=== PATIENT | female | born 1975 | race Caucasian/White ===

== ENCOUNTER 2016-04-26 19:48 | Inpatient (IN) | payer OTHER ==
[2016-04-26] MEDS ORDERED: NS 1,000 ML IV ONE (20:34)
[2016-04-26] MEDS ORDERED: ZOFRAN IV ONE (20:35)
[2016-04-26] MEDS ORDERED: MORPHINE IV ONE ×2 (20:35→23:53)
[2016-04-26 20:41] LABS: URINE CULTURE NEEDED? NO; URINE SOURCE CLEAN CATCH
[2016-04-26 20:43] LABS: BILIRUBIN URINE NEGATIVE (NEGATIVE); BLOOD URINE LARGE (NEGATIVE); COLOR YELLOW; GLUCOSE URINE NEGATIVE (NEGATIVE); LEUKOCYTES URINE NEGATIVE (NEGATIVE); NITRITE URINE NEGATIVE (NEGATIVE); PROTEIN URINE 30 mg/dL (NEGATIVE); SP GRAVITY URINE 1.022; TURBIDITY URINE HAZY (CLEAR); UROBILINOGEN URINE NORMAL (NORMAL)
[2016-04-26 20:56] LABS: UR EPITHELIAL CELLS <10 /HPF (<10); URINE BACTERIA 1+ /HPF; URINE MICRO REVIEW NEEDED? YES; URINE RBC <10 /HPF (<10); URINE WBC <10 /HPF (<10)
[2016-04-26 21:04] LABS: URINE CASTS NONE SEEN; URINE CRYSTALS NONE SEEN
[2016-04-26 21:05] LABS: URINE SMALL ROUND CELLS NONE SEEN
[2016-04-26 21:08] LABS: MANUAL DIFF NEEDED? NO
[2016-04-26 21:14] LABS: UR AMPHETAMINES QUAL NONE DETECTED (NONE DETECT); UR BARBITUATES QUAL NONE DETECTED (NONE DETECT); UR BENZODIAZEPIN QUAL PRESUMPTIVE POSITIVE (NONE DETECT); UR CANNABINOIDS QUAL NONE DETECTED (NONE DETECT); UR COCAINE QUAL NONE DETECTED (NONE DETECT); UR METHADONE QUAL NONE DETECTED (NONE DETECT); UR OPIATES QUAL PRESUMPTIVE POSITIVE (NONE DETECT); UR OXYCODONE QUAL NONE DETECTED (NONE DETECT); UR PCP QUAL NONE DETECTED (NONE DETECT)
[2016-04-26 21:17] LABS: BASO% 0.3 % (0.0-0.8); EOS# 0.02 X1000 (0.0-0.7); EOS% 0.2 % (0.0-10.0); HEMATOCRIT 29.6 % (37.0-47.0); HEMOGLOBIN 10.1 g/dL (12.0-16.0); IMM GRAN# 0.03 X1000 (0.0-0.04); IMM GRAN% 0.3 % (0.0-0.5); LYMPH# 2.06 X1000 (1.2-3.4); LYMPH% 18.8 % (20.5-51.1); MCH 31.4 PG (27-31); MCHC 34.1 g/dL (33-37); MCV 91.9 FL (81-99); MONO# 1.29 X1000 (0.11-0.59); MONO% 11.7 % (1.7-9.3); MPV 9.8 FL (7.4-10.4); NEUT% 68.7 % (42.2-75.2); PLT 387 X1000 (130-400); RBC 3.22 XMIL (4.2-5.4)
[2016-04-26 21:48] LABS: ALBUMIN 1.6 g/dL (3.5-5.0); TOTAL BILIRUBIN 0.6 mg/dL (0.20-1.00); TOTAL PROTEIN 4.7 g/dL (6.3-8.3)
[2016-04-26 21:50] LABS: CALCIUM 6.7 mg/dL (8.8-10.2); POTASSIUM 2.3 mmol/L (3.5-5.1)
[2016-04-26] MEDS ORDERED: CALTRATE 600 PO ONE (21:56)
[2016-04-26] MEDS ORDERED: NS + KCL 20 MEQ 1,000 ML IV SCH (22:00)
[2016-04-26] MEDS ORDERED: MAG-OX PO ONE (22:05)
[2016-04-26] MEDS: NS + KCL 20 MEQ 1,000 ML IV SCH (22:29)
--- NOTE | 2016-04-26 22:29 | PROVIDER DOCUMENTATION ---
Addendum entered and electronically signed by Evelyn Moctezuma Scribe 04/26/16 23: 13: EKG Interpretation - EKG Time of EKG reading by physician:: 20:08 EKG Read and Signed by:: Scooter Cortes EKG Interpretation (*Must complete 3 of following elements*): Abnormal Rate: 102 Rhythm: sinus tachycardia w/ premature supraventricula complexs ST Wave: non-specific ST changes Original Note: HPI-Abdominal Pain/GI Problem - General Chief Complaint: N/V/D Stated Complaint: N/V/D, COUGH, FEVER Time Seen by Provider: 04/26/16 20:07 Source: patient Allergies/Adverse Reactions: Patient Allergies Allergy/AdvReac Type Severity Reaction Status Date / Time Penicillins Allergy SWELLING Verified 05/05/14 20:55 Home Medications: Home Medication List Medication Instructions Recorded Confirmed Last Taken Type Escitalopram Oxalate [Lexapro] 5 mg PO DAILY 12/18/15 12/18/15 Unknown History Esomeprazole Magnesium [Nexium 20 mg PO BID 12/18/15 12/18/15 Unknown History 24Hr] Furosemide [Lasix] 20 mg PO DAILY 12/18/15 12/18/15 Unknown History Promethazine [Phenergan] 25 mg PO Q6H PRN PRN 12/18/15 12/18/15 12/17/15 History Simethicone [Gas-X] 80 mg PO TID 12/18/15 12/18/15 Unknown History Buprenorphine/Naloxone S.l. 1 each SL BID #60 strip 12/21/15 Unknown Rx [Suboxone 8 mg/2 mg] Chlordiazepoxide [Librium] 25 mg PO BID #15 capsule 12/21/15 Unknown Rx Sulfamethoxazole/Tmp D.s. [Septra 1 each PO BID #14 tablet 12/21/15 Unknown Rx Ds] Zolpidem Tartrate [Ambien] 10 mg PO HS #0 12/21/15 12/18/15 Unknown Rx - History of Present Illness-ABD Nature of Presenting Problems: This pt presents today c complaints of abdominal pain and n/v/d X 5 days. She reports that she has been unable to hold anything down for the past 3 days and is having decreased urination. No fever,chills. Pt is hysterical and anxious in the room and states that she is out of her suboxone and xanax although later in the conversation she told me that she took half of one this morning. No other issues or complaints. Abdominal Pain Onset Location: reports: generalized abdomen Quality of Pain: reports: cramping Severity in ED: reports: moderate Onset/Duration: reports: 5 days ago Timing: reports: still present Modifying Factors: improves with: vomiting Associated Symptoms: reports: diarrhea, fatigue, loss of appetite, nausea, vomiting Last BM: this afternoon Dark Stools Present?: reports: none noticed Rectal Bleeding: reports: none Rectal Pain: reports: none Emesis Description: reports: clear Bruising or Bleeding Gums?: No Similar Symptoms Previously?: No Recently seen or treated by another doctor?: No Review of Systems - Adult - REVIEW OF SYSTEMS - ADULT Constitutional: reports: fatique. denies: chills, fever Eyes: reports: no symptoms reported. denies: discharge, dry eyes Ears, Nose, Mouth & Throat: reports: no symptoms reported. denies: ear discharge, ear pain Cardiovascular: reports: no symptoms reported. denies: chest pain, edema Respiratory: reports: no symptoms reported. denies: chronic cough, cough Gastrointestinal: reports: abdominal pain, diarrhea, nausea, poor appetite, vomiting. denies: hematemesis, difficulty swallowing, frequent heartburn Genitourinary: reports: see HPI. denies: dysuria, discharge Musculoskeletal: reports: no symptoms reported. denies: bone pain, back pain Integumentary: reports: no symptoms reported. denies: hives, hair loss Neurological: reports: no symptoms reported. denies: ataxia, dizziness/vertigo Psychiatric: reports: anxiety. denies: insomnia, panic attacks Endocrine: reports: no symptoms reported Hematologic/Lymphatic: reports: no symptoms reported Allergic/Immunologic: reports: no symptoms reported All Other Systems: Reviewed and Negative Past History - Adult - PAST MEDICAL HISTORY-ADULT Review of Records: reports: Old Records Reviewed, Nursing Assessment Review, Medications Reviewed, Social history reviewed & non-contributory. Major Childhood Illnesses: reports: denies history Cardiovascular: reports: denies history Respiratory: reports: denies history Gastrointestinal: reports: inflammatory bowel disease, IBS, obstruction Obstetrical/Gynecological: reports: endometriosis, fibroids, uterine/ovarian cancer Genitourinary: reports: cancer Musculoskeletal: reports: denies history Neurological: reports: denies history Psychiatric: reports: denies history Endocrine/Immune: reports: denies history Other Conditions: reports: denies history - PRIOR SURGERIES/PROCEDURES Surgical/Procedure History: reports: hysterectomy, bowel surgery - PRIOR HOSPITALIZATIONS Prior Hospitalizations: reports: for similar symptoms - IMMUNIZATION STATUS Childhood Immunizations: NUTD, See Nurse Assessment Flu Vaccine: See Nurse Assessment - FAMILY HISTORY Family History: reviewed, not pertinent Physical Exam-General - PHYSICAL EXAM-ADULT Initial Vital Signs Reviewed: Yes - CONSTITUTIONAL General Appearance: appears well, alert, no apparent distress - EYES Eyes: PERRL/EOMI, pink conjunctivae - HEAD, EARS, NOSE, MOUTH & THROAT HENMT: normocephalic/atraumatic, moist mucous membranes, normal ENT inspection - NECK Neck: non-tender, full range of motion - RESPIRATORY Respiratory: chest non-tender, lungs clear, normal breath sounds - CARDIOVASCULAR Cardiovascular: normal peripheral pulses, tachycardia - GASTROINTESTINAL (ABDOMEN) Abdominal Exam: normal bowel sounds, non tender, soft - MUSCULOSKELETAL Back Exam: normal inspection Extremity: normal range of motion, non-tender - SKIN Integumentary: normal color, normal turgor, warm/dry - NEUROLOGIC Neurologic: grossly normal, no motor/sensory deficits Progress - PLAN OF CARE/RESULTS Progress/Plan/Lab Results: Laboratory Tests 04/26/16 04/26/16 04/26/16 20:17 20:40 21:02 WBC RBC Hgb Hct MCV MCH MCHC RDW Std Deviation Plt Count MPV Immature Gran % (Auto) Neut % (Auto) Lymph % (Auto) Bertie % (Auto) Eos % (Auto) Baso % (Auto) Immature Gran # (Auto) Neut # (Auto) Lymph # (Auto) Bertie # (Auto) Eos # (Auto) Baso # (Auto) Sodium Potassium Chloride Carbon Dioxide Anion Gap BUN Creatinine Estimated GFR/1.73 m2 BUN/Creatinine Ratio Glucose Calculated Osmolality Calcium Magnesium Total Bilirubin AST ALT Alkaline Phosphatase Creatine Kinase 66 Troponin T Total Protein Albumin Globulin Albumin/Globulin Ratio Urine Source CLEAN CATCH Urine Color YELLOW Urine Turbidity HAZY Urine pH 6.0 Ur Specific [place] 1.022 Urine Protein 30 A Ur Glucose (Stick) NEGATIVE Ur Ketones (Stick) NEGATIVE Urine Blood LARGE A Urine Nitrite NEGATIVE Urine Bilirubin NEGATIVE Urobilinogen Dipstick NORMAL Urine Leukocytes NEGATIVE Urine WBC (Auto) <10 Urine RBC (Auto) <10 U Epithel Cells (Auto) <10 Urine Bacteria (Auto) 1+ Urine Crystals NONE SEEN Small Round Cells NONE SEEN Urine Casts NONE SEEN Urine Yeast-like Cells NONE SEEN Urine Opiates Screen PRESUMPTIVE POSITIVE A Ur Oxycodone Screen NONE DETECTED Ur Methadone, Qual NONE DETECTED Ur Barbiturates Screen NONE DETECTED Ur Phencyclidine Scrn NONE DETECTED Ur Amphetamines Screen NONE DETECTED U Benzodiazepines Scrn PRESUMPTIVE POSITIVE A Urine Cocaine Screen NONE DETECTED U Cannabinoids Screen NONE DETECTED Plasma/Serum Ethyl Alc 04/26/16 04/26/16 04/26/16 21:02 21:02 21:02 WBC 10.98 H RBC 3.22 L Hgb 10.1 L Hct 29.6 L MCV 91.9 MCH 31.4 H MCHC 34.1 RDW Std Deviation 15.5 H Plt Count 387 MPV 9.8 Immature Gran % (Auto) 0.3 Neut % (Auto) 68.7 Lymph % (Auto) 18.8 L Bertie % (Auto) 11.7 H Eos % (Auto) 0.2 Baso % (Auto) 0.3 Immature Gran # (Auto) 0.03 Neut # (Auto) 7.55 H Lymph # (Auto) 2.06 Bertie # (Auto) 1.29 H Eos # (Auto) 0.02 Baso # (Auto) 0.03 Sodium 139 Potassium 2.3 L* Chloride 99 Carbon Dioxide 18 L Anion Gap 22 BUN 4 L Creatinine 1.6 H Estimated GFR/1.73 m2 36 BUN/Creatinine Ratio 3 Glucose 169 H Calculated Osmolality 278 Calcium 6.7 L* Magnesium Total Bilirubin 0.60 AST 115 H ALT 103 H Alkaline Phosphatase 234 H Creatine Kinase Troponin T < 0.010 Total Protein 4.7 L Albumin 1.6 L Globulin 3.1 Albumin/Globulin Ratio 0.5 Urine Source Urine Color Urine Turbidity Urine pH Ur Specific [place] Urine Protein Ur Glucose (Stick) Ur Ketones (Stick) Urine Blood Urine Nitrite Urine Bilirubin Urobilinogen Dipstick Urine Leukocytes Urine WBC (Auto) Urine RBC (Auto) U Epithel Cells (Auto) Urine Bacteria (Auto) Urine Crystals Small Round Cells Urine Casts Urine Yeast-like Cells Urine Opiates Screen Ur Oxycodone Screen Ur Methadone, Qual Ur Barbiturates Screen Ur Phencyclidine Scrn Ur Amphetamines Screen U Benzodiazepines Scrn Urine Cocaine Screen U Cannabinoids Screen Plasma/Serum Ethyl Alc 04/26/16 04/26/16 21:02 21:02 WBC RBC Hgb Hct MCV MCH MCHC RDW Std Deviation Plt Count MPV Immature Gran % (Auto) Neut % (Auto) Lymph % (Auto) Bertie % (Auto) Eos % (Auto) Baso % (Auto) Immature Gran # (Auto) Neut # (Auto) Lymph # (Auto) Bertie # (Auto) Eos # (Auto) Baso # (Auto) Sodium Potassium Chloride Carbon Dioxide Anion Gap BUN Creatinine Estimated GFR/1.73 m2 BUN/Creatinine Ratio Glucose Calculated Osmolality Calcium Magnesium 1.3 L Total Bilirubin AST ALT Alkaline Phosphatase Creatine Kinase Troponin T Total Protein Albumin Globulin Albumin/Globulin Ratio Urine Source Urine Color Urine Turbidity Urine pH Ur Specific [place] Urine Protein Ur Glucose (Stick) Ur Ketones (Stick) Urine Blood Urine Nitrite Urine Bilirubin Urobilinogen Dipstick Urine Leukocytes Urine WBC (Auto) Urine RBC (Auto) U Epithel Cells (Auto) Urine Bacteria (Auto) Urine Crystals Small Round Cells Urine Casts Urine Yeast-like Cells Urine Opiates Screen Ur Oxycodone Screen Ur Methadone, Qual Ur Barbiturates Screen Ur Phencyclidine Scrn Ur Amphetamines Screen U Benzodiazepines Scrn Urine Cocaine Screen U Cannabinoids Screen Plasma/Serum Ethyl Alc Orders Category Date Time Status ED: Urine Bedside ORDERED Care 04/26/16 20:08 Inactive Saline Loc NOW Care 04/26/16 20:07 Active FLAT/UPRIGHT ABD/1 VIEW CHEST [RAD] Stat Exams 04/26/16 20:35 Taken ALCOHOL BLOOD Stat Lab 04/26/16 21:02 Completed CBC WITH ELECTRONIC DIFF [HEME] Stat Lab 04/26/16 21:02 Completed CK PROFILE [SP CHEM] Stat Lab 04/26/16 21:02 Completed COMPREHENSIVE METABOLIC PANEL [CHEM] Stat Lab 04/26/16 21:02 Completed MAGNESIUM [CHEM] Stat Lab 04/26/16 21:02 Completed OCCULT BLOOD SCREENING [STOOL] Stat Lab 04/26/16 21:50 Completed TROPONIN T Stat Lab 04/26/16 21:02 Completed URINALYSIS W/POSS RFLX CULT [URINALYSIS] Stat Lab 04/26/16 20:17 Completed URINE DRUG SCREEN Stat Lab 04/26/16 20:40 Completed URINE MANUAL MICROSCOPIC [URINALYSIS] Stat Lab 04/26/16 20:17 Completed 0.9% Sodium Chloride Inj [Ns] 1,000 ml Med 04/26/16 20:34 Discontinued IV 999 mls/hr Calcium Carbonate [Caltrate 600] Med 04/26/16 21:56 Discontinued 600 mg PO NOW ONE Magnesium Oxide [Mag-Ox] Med 04/26/16 22:05 Discontinued 400 mg PO NOW ONE Morphine Med 04/26/16 20:35 Discontinued 4 mg IV NOW ONE Ns + KCl 20 Meq 1,000 ml Med 04/26/16 22:00 Active IV 500 mls/hr Ns + KCl 20 Meq 1,000 ml Med 04/26/16 22:00 Discontinued IV 500 mls/hr Ondansetron [Zofran] Med 04/26/16 20:35 Discontinued 4 mg IV NOW ONE EKG [EKG] Stat Ther 04/26/16 20:02 Ordered Vital Signs Temp Pulse Resp BP Pulse Ox 04/26/16 21:43 98 H 14 121/82 98 04/26/16 20:01 98.4 F 109 H 18 104/61 100 Penicillins Allergy (Verified 05/05/14 20:55) SWELLING Escitalopram Oxalate [Lexapro] 5 mg PO DAILY 12/18/15 Esomeprazole Magnesium [Nexium 24Hr] 20 mg PO BID 12/18/15 Furosemide [Lasix] 20 mg PO DAILY 12/18/15 Promethazine [Phenergan] 25 mg PO Q6H PRN PRN 12/18/15 Simethicone [Gas-X] 80 mg PO TID 12/18/15 Buprenorphine/Naloxone S.l. [Suboxone 8 mg/2 mg] 1 each SL BID #60 strip Chlordiazepoxide [Librium] 25 mg PO BID #15 capsule 12/21/15 Sulfamethoxazole/Tmp D.s. [Septra Ds] 1 each PO BID #14 tablet 12/21/15 Zolpidem Tartrate [Ambien] 10 mg PO HS #0 12/21/15 I&O 04/25/16 04/26/16 04/27/16 06:59 06:59 06:59 Output Total 20 Balance -20 Laboratory 04/26/16 04/26/16 04/26/16 21:02 21:02 21:02 WBC RBC Hgb Hct MCV MCH MCHC RDW Std Deviation Plt Count MPV Immature Gran % (Auto) Neut % (Auto) Lymph % (Auto) Bertie % (Auto) Eos % (Auto) Baso % (Auto) Immature Gran # (Auto) Neut # (Auto) Lymph # (Auto) Bertie # (Auto) Eos # (Auto) Baso # (Auto) Sodium 139 Potassium 2.3 L* Chloride 99 Carbon Dioxide 18 L Anion Gap 22 BUN 4 L Creatinine 1.6 H Estimated GFR/1.73 m2 36 BUN/Creatinine Ratio 3 Glucose 169 H Calculated Osmolality 278 Calcium 6.7 L* Magnesium 1.3 L Total Bilirubin 0.60 AST 115 H ALT 103 H Alkaline Phosphatase 234 H Creatine Kinase Troponin T Total Protein 4.7 L Albumin 1.6 L Globulin 3.1 Albumin/Globulin Ratio 0.5 Urine Source Urine Color Urine Turbidity Urine pH Ur Specific [place] Urine Protein Ur Glucose (Stick) Ur Ketones (Stick) Urine Blood Urine Nitrite Urine Bilirubin Urobilinogen Dipstick Urine Leukocytes Urine WBC (Auto) Urine RBC (Auto) U Epithel Cells (Auto) Urine Bacteria (Auto) Urine Crystals Small Round Cells Urine Casts Urine Yeast-like Cells Urine Opiates Screen Ur Oxycodone Screen Ur Methadone, Qual Ur Barbiturates Screen Ur Phencyclidine Scrn Ur Amphetamines Screen U Benzodiazepines Scrn Urine Cocaine Screen U Cannabinoids Screen Plasma/Serum Ethyl Alc 04/26/16 04/26/16 04/26/16 21:02 21:02 21:02 WBC 10.98 H RBC 3.22 L Hgb 10.1 L Hct 29.6 L MCV 91.9 MCH 31.4 H MCHC 34.1 RDW Std Deviation 15.5 H Plt Count 387 MPV 9.8 Immature Gran % (Auto) 0.3 Neut % (Auto) 68.7 Lymph % (Auto) 18.8 L Bertie % (Auto) 11.7 H Eos % (Auto) 0.2 Baso % (Auto) 0.3 Immature Gran # (Auto) 0.03 Neut # (Auto) 7.55 H Lymph # (Auto) 2.06 Bertie # (Auto) 1.29 H Eos # (Auto) 0.02 Baso # (Auto) 0.03 Sodium Potassium Chloride Carbon Dioxide Anion Gap BUN Creatinine Estimated GFR/1.73 m2 BUN/Creatinine Ratio Glucose Calculated Osmolality Calcium Magnesium Total Bilirubin AST ALT Alkaline Phosphatase Creatine Kinase 66 Troponin T < 0.010 Total Protein Albumin Globulin Albumin/Globulin Ratio Urine Source Urine Color Urine Turbidity Urine pH Ur Specific [place] Urine Protein Ur Glucose (Stick) Ur Ketones (Stick) Urine Blood Urine Nitrite Urine Bilirubin Urobilinogen Dipstick Urine Leukocytes Urine WBC (Auto) Urine RBC (Auto) U Epithel Cells (Auto) Urine Bacteria (Auto) Urine Crystals Small Round Cells Urine Casts Urine Yeast-like Cells Urine Opiates Screen Ur Oxycodone Screen Ur Methadone, Qual Ur Barbiturates Screen Ur Phencyclidine Scrn Ur Amphetamines Screen U Benzodiazepines Scrn Urine Cocaine Screen U Cannabinoids Screen Plasma/Serum Ethyl Alc 04/26/16 04/26/16 20:40 20:17 WBC RBC Hgb Hct MCV MCH MCHC RDW Std Deviation Plt Count MPV Immature Gran % (Auto) Neut % (Auto) Lymph % (Auto) Bertie % (Auto) Eos % (Auto) Baso % (Auto) Immature Gran # (Auto) Neut # (Auto) Lymph # (Auto) Bertie # (Auto) Eos # (Auto) Baso # (Auto) Sodium Potassium Chloride Carbon Dioxide Anion Gap BUN Creatinine Estimated GFR/1.73 m2 BUN/Creatinine Ratio Glucose Calculated Osmolality Calcium Magnesium Total Bilirubin AST ALT Alkaline Phosphatase Creatine Kinase Troponin T Total Protein Albumin Globulin Albumin/Globulin Ratio Urine Source CLEAN CATCH Urine Color YELLOW Urine Turbidity HAZY Urine pH 6.0 Ur Specific [place] 1.022 Urine Protein 30 A Ur Glucose (Stick) NEGATIVE Ur Ketones (Stick) NEGATIVE Urine Blood LARGE A Urine Nitrite NEGATIVE Urine Bilirubin NEGATIVE Urobilinogen Dipstick NORMAL Urine Leukocytes NEGATIVE Urine WBC (Auto) <10 Urine RBC (Auto) <10 U Epithel Cells (Auto) <10 Urine Bacteria (Auto) 1+ Urine Crystals NONE SEEN Small Round Cells NONE SEEN Urine Casts NONE SEEN Urine Yeast-like Cells NONE SEEN Urine Opiates Screen PRESUMPTIVE POSITIVE A Ur Oxycodone Screen NONE DETECTED Ur Methadone, Qual NONE DETECTED Ur Barbiturates Screen NONE DETECTED Ur Phencyclidine Scrn NONE DETECTED Ur Amphetamines Screen NONE DETECTED U Benzodiazepines Scrn PRESUMPTIVE POSITIVE A Urine Cocaine Screen NONE DETECTED U Cannabinoids Screen NONE DETECTED Plasma/Serum Ethyl Alc - XRAY 1 XRAY Study: Chest, Abdomen XRAY Interpretation: nad - CONSULTS/PCP/HOSPITALIST Notification #1 *Consult/PCP/Hospitalist*: Dr. Dallas Time Discussed: 22:41 Consult Disposition: Admit Departure - Departure Time of Disposition Order: 22:37 DIAGNOSIS: Hypokalemia, Hypocalcemia, Dehydration Intractable nausea and vomiting Qualifiers: Vomiting type: unspecified Qualified Code(s): R11.2 - Nausea with vomiting, unspecified Disposition: ADMITTED INPATIENT 09 Certified Medical Emergency: Emergent Condition: Stable Attestation - Physician/ MEAGHAN Attestation Patient care was provided by Advanced Practice Provider:: Yes Advanced Practice Provider:: Forrest Chandler Advanced Practice Provider documentation review:: The Mid-level provider documentation, treatment plan and medical decision making was reviewed by the physician who agrees with all treatment and medical decision making by the MLP.
[2016-04-26] MEDS ORDERED: XANAX PO ONE ×2 (23:45→23:53)
[2016-04-26] MEDS ORDERED: XANAX ONE (23:56)
[2016-04-27] MEDS: NS + KCL 20 MEQ 1,000 ML IV SCH
[2016-04-27] MEDS ORDERED: NICODERM PATCH TD ONE (00:41)
[2016-04-27] MEDS: MAGNESIUM SULFATE 2 GM/S.W.I. 50 ML IV ONE ×2 (00:55→01:04)
--- NOTE | 2016-04-27 00:55 | Diag Imaging Result Document ---
PROCEDURE NAME: FLAT/UPRIGHT ABD/1 VIEW CHEST - 04/26/2016 PLAIN RADIOGRAPH OF THE CHEST AND ABDOMEN 3 VIEWS: COMPARISON: None available. FINDINGS: There are multiple metallic clips projecting over the lower abdomen and pelvis. Cholecystectomy clips are noted in the right upper quadrant. There are splenic calcified granulomata noted. There are unremarkable bowel gas and stool patterns. There is no obstructive pattern. There is no evidence of large-volume free abdominal gas. Vague opacities at the lower lung zones appear to be due to overlying soft tissue attenuation. The lungs are grossly clear. There is no definite pleural fluid collection. Cardiac silhouette is unremarkable. IMPRESSION: No definite acute pathology by plain radiograph.
--- NOTE | 2016-04-27 00:58 | HISTORY AND PHYSICAL ---
PRIMARY CARE PHYSICIAN: Dr. Medina. CHIEF COMPLAINT: Nausea, vomiting, diarrhea and weakness for 3 days. HISTORY OF PRESENTING ILLNESS: A 41-year-old female with a history of hypertension and panic disorder had presented to the emergency department with 3 days history of having nausea, vomiting, diarrhea. Patient states that she was so weak she was unable to get out of her couch. Finally she was brought by family members to the emergency department. She was evaluated, in the ER she was found to have multiple electrolyte abnormalities include low potassium, low magnesium, low calcium. Due to presenting symptoms it was thought that she would need hospitalization for further management. Time my examination she denied any headaches, vision changes, fevers, chills, chest pain, shortness of breath, hemoptysis, melena, complained of weakness, not feeling well. PAST MEDICAL HISTORY: Includes panic disorder, hypertension not taking any medicines. PAST SURGICAL HISTORY: Hysterectomy, colon surgery, cholecystectomy. ALLERGIES: Penicillin. CURRENT MEDICATION: As listed MAR. SOCIAL HISTORY: Twenty-five pack years history of smoking. Denies any history alcohol or illicit drug use. FAMILY HISTORY: Positive for coronary disease mother. REVIEW OF SYSTEMS: Twelve point review of systems listed as HPI. Other systems negative. PHYSICAL EXAMINATION: GENERAL: Cooperative, friendly female, she is resting comfortably now. VITAL SIGNS: Temperature 98.4 degrees, pulse 109, respiration 18, blood pressure 104/6, saturating 100%. HEENT: Atraumatic, normocephalic. Extraocular movements intact. PERRLA. NECK: Supple. CHEST: Clear to auscultation. CARDIOVASCULAR: Regular rate and rhythm. ABDOMEN: Soft, nontender. Positive bowel sounds. EXTREMITIES: No edema. NEURO: She is awake, alert, oriented x3. : No bladder distention. SKIN: Warm. LABORATORIES AND STUDIES: WBC 10.98, hemoglobin 10.1, hematocrit 29.6, platelets 387,000. UA shows +1 bacteria. Sodium 139, potassium 2.3, chloride 99, CO2 18, BUN is 4, creatinine is 1.6, glucose is 169, calcium is 6.7, AST, ALT is 115, 103, alkaline phosphatase is 234, magnesium is 103. ASSESSMENT: A 41-year-old female with a history of hypertension and anxiety disorder had presented to emergency department with 3 days history worsening nausea, vomiting, diarrhea. She was found to have multiple electrolyte abnormalities on laboratory. She will need hospitalization further management. 1. Nausea, vomiting, diarrhea suspected gastroenteritis. 2. Hypokalemia. 3. Hypomagnesemia. 4. Hypocalcemia. 5. Abnormal liver function tests. 6. Suspected urinary tract infection. PLAN: 1. We will admit patient to medical floor. 2. Continue support treatment with IV fluids, antiemetics. 3. Replace her electrolytes including potassium, magnesium. 4. Replace calcium. 5. Will check a hepatitis profile, right upper quadrant ultrasound. 6. Will check urine cultures and start patient on empiric antibiotics. 7. Will continue to follow and reassess.
[2016-04-27] MEDS ORDERED: POTASSIUM CHLORIDE 20 MEQ/SWI 100 ML IV SCH (01:00)
[2016-04-27] MEDS ORDERED: CALCIUM GLUCONATE 1 GM in NS 50 ML IV ONE (01:57)
[2016-04-27] MEDS ORDERED: ZOFRAN IV PRN (02:30)
[2016-04-27] MEDS: MORPHINE IV PRN ×3 (03:08→21:14)
[2016-04-27] MEDS: ZOFRAN IV PRN ×4 (03:08→19:55)
[2016-04-27] MEDS: POTASSIUM CHLORIDE 20 MEQ/SWI 100 ML IV SCH ×2 (04:26→06:06)
[2016-04-27] MEDS: NS 1,000 ML IV SCH ×4 (06:05→19:55)
--- NOTE | 2016-04-27 09:44 | Diag Imaging Result Document ---
PROCEDURE NAME: US ABDOMEN-COMPLETE - 04/27/2016 COMPLETE ABDOMINAL ULTRASOUND: COMPARISON: None available. FINDINGS: There has been a previous cholecystectomy. The common bile duct is dilated measuring up to 1.1 cm. At least in part, this is due to postcholecystectomy status. No discrete ductal stone can be identified sonographically. The liver, visualized pancreas, spleen, aorta, IVC, and kidneys are grossly unremarkable. IMPRESSION: Dilated common bile duct that is, at least in part, due to post cholecystectomy status. If clinically warranted, consider correlation with liver function tests.
[2016-04-27 09:56] LABS: ACETAMINOPHEN 3.7 ug/mL (10-30); PREALBUMIN 6.7 mg/dL (20-40)
[2016-04-27 10:02] LABS: TOTAL IRON 62 ug/dL (49-151)
[2016-04-27] MEDS: LEVAQUIN 250 MG/D5W 50 ML IV SCH (10:24)
[2016-04-27] MEDS: TYLENOL PO PRN (10:27)
[2016-04-27 10:40] LABS: VITAMIN D 25 HYDROXY 6.7 NG/DL
[2016-04-27 11:43] LABS: UNBOUND IRON < 17 ug/dL (112-346)
[2016-04-27] MEDS: ATIVAN IV PRN ×2 (12:39→19:55)
[2016-04-27] MEDS: CLINIMIX E 4.25%-5% SOLUTION 1,000 ML IV SCH (12:40)
--- NOTE | 2016-04-27 13:57 | PROGRESS NOTE ---
DATE: 04/27/2016 SUBJECTIVE: Today, Ms. Bolaños referred to be doing relatively fine. She continues to have abdominal discomfort but has not vomited. Ms. Bolaños was admitted last night. OBJECTIVE: Vital signs are stable. Blood pressure is 129/87, pulse of 96, respirations 20, temperature is 97.2 degrees. General: Ms. Bolaños is a 41-year-old female. She is in bed in no remarkable distress. She looks very malnourished with BMI of 15.3. Mucosa is pink and moist. Anicteric. Acyanotic. Neck is supple. Chest: Air entry is bilaterally reduced. There is diffuse end exploratory wheezes. Cardiovascular: Regular rate and rhythm. Abdomen is soft, mildly tender all over. There is a very bad old surgical scar on the anterior abdominal wall midline, and there is some drainage to the distal part of this scar almost which the pubics. Extremities: No pedal edema. FILENET ADMIN: The patient is drowsy but is easily arousable, and she just gets demanding for her sedatives. LABORATORY: Results have been reviewed. Very remarkably, potassium is 2.3, calcium is 6.7, magnesium is 1.3. Vitamin D is 6.7. Folate is 8.4 and prealbumin is 6.7. ASSESSMENT: Ms Bolaños is a 41-year-old female, who presented to the emergency department because of nausea and vomiting. 1. Intractable nausea, vomiting, and diarrhea. I think this is probably is a gastroenteritis; however, with the extensive abdominal surgical history the patient, we will be keeping a very close eye on her abdominal exams. 2. Multivitamin and multi-mineral deficiencies. I am not quite sure if this is just a problem of inadequate ingestion or there is a genuine underlying malabsorptive syndrome. 3. Vitamin D and folate deficiencies. We will replace this. 4. Multiple GI surgeries in [facility]. We will request for the documents. 5. Prescription drug use. The patient is very adamant and has been requesting a lot of pain medications and sedatives. From her history, she seems to have been in contact with the healthcare system for long, and she seems to have been using a lot of these sedatives and opioids. I will be extremely careful with the use of this in this patient so that we do not perpetuate the habit. 6. High anion gap metabolic acidosis, unclear etiology. We will do a lactic acid level and do the other workup for this. I assume this could be probably a D lactic acidosis from the gastrointestinal system. 7. Bronchospasms. The patient has wheezes. She had a history of [id number] history. I think she probably has an underlying chronic obstructive pulmonary disease; however , we will do a CT scan of the chest to make sure we are not missing any other pathology. 8. Chronic pain syndrome. 9. Transaminitis, etiology is unclear. We will involve our gastrointestinal colleague. So far, abdominal ultrasound is unrevealing except for mildly dilated common bile duct. 10. History of cholecystectomy. MTDD
[2016-04-27] MEDS: LIPOSYN 20% 250 ML IV SCH (15:26)
[2016-04-27] MEDS: NICODERM PATCH TD SCH (17:55)
[2016-04-28] MEDS: CLINIMIX E 4.25%-5% SOLUTION 1,000 ML IV SCH ×3 (01:47→23:31)
[2016-04-28] MEDS: ATIVAN IV PRN ×2 (01:47→08:09)
[2016-04-28] MEDS: ZOFRAN IV PRN ×4 (01:47→20:00)
[2016-04-28] MEDS: MORPHINE IV PRN ×2 (01:48→08:09)
[2016-04-28 06:04] LABS: MANUAL DIFF NEEDED? NO
[2016-04-28 06:09] LABS: BASO% 0.7 % (0.0-0.8); EOS# 0.06 X1000 (0.0-0.7); EOS% 1.3 % (0.0-10.0); HEMATOCRIT 25.2 % (37.0-47.0); HEMOGLOBIN 8.2 g/dL (12.0-16.0); LYMPH# 1.29 X1000 (1.2-3.4); MCH 30.8 PG (27-31); MCHC 32.5 g/dL (33-37); MCV 94.7 FL (81-99); MONO# 0.75 X1000 (0.11-0.59); MONO% 16.3 % (1.7-9.3); NEUT% 53.7 % (42.2-75.2); PLT 288 X1000 (130-400); RBC 2.66 XMIL (4.2-5.4)
[2016-04-28 06:30] LABS: AGAP 10; ALBUMIN 1.5 g/dL (3.5-5.0); ALKALINE PHOSPHATASE 191 U/L (32-104); BUN 4 mg/dL (8-22); CHLORIDE 109 mmol/L (98-107); COSMO 279; GOT 30 U/L (10-30); GPT 60 U/L (10-36); MAGNESIUM 1.9 mg/dL (1.5-2.7); POTASSIUM 2.9 mmol/L (3.5-5.1); SODIUM 141 mmol/L (136-145); TCO2 22 mmol/L (25-35); TOTAL BILIRUBIN 0.77 mg/dL (0.20-1.00); TOTAL PROTEIN 3.9 g/dL (6.3-8.3)
[2016-04-28 06:38] LABS: CALCIUM 6.7 mg/dL (8.8-10.2)
[2016-04-28] MEDS ORDERED: KLOR-CON PO ONE (07:28)
[2016-04-28] MEDS ORDERED: POTASSIUM CHLORIDE 60 MEQ in NS 500 ML IV ONE (07:48)
[2016-04-28] MEDS: LEVAQUIN 250 MG/D5W 50 ML IV SCH (08:10)
[2016-04-28] MEDS: NICODERM PATCH TD SCH (08:10)
[2016-04-28] MEDS: NEUTRA-PHOS PO SCH ×4 (08:10→23:32)
[2016-04-28] MEDS ORDERED: ZOMIG PO ONE (09:59)
--- NOTE | 2016-04-28 11:01 | EKG Report ---
Test Performed on : 04/26/2016 8:08:33 PM Test Reason : cp Blood Pressure : / mmHG Vent. Rate : 102 BPM Atrial Rate : 102 BPM P-R Int : 162 ms QRS Dur : 070 ms QT Int : 314 ms P-R-T Axes : 069 066 245 degrees QTc Int : 409 ms Sinus tachycardia. with premature supraventricular complexes. Septal infarct , age undetermined ST & T wave abnormality, consider inferolateral ischemia Abnormal ECG No previous ECGs available Unconfirmed Result
--- NOTE | 2016-04-28 11:19 | Diag Imaging Result Document ---
PROCEDURE NAME: THORAX/ABDOMEN/PELVIS W/O CONT - 04/27/2016 CT THORAX WITHOUT CONTRAST: TECHNIQUE: No contrast administered per request of the referring provider. A dose reduction protocol was used. No comparison exam. FINDINGS: There is mild interstitial marking prominence with fine nodularity throughout much of the lungs. There is scattered small patchy infiltrates at the left upper lobe. These findings may relate interstitial pneumonitis. There is no dense consolidation, pleural effusion, or pneumothorax identified. There are nonspecific small mediastinal lymph nodes. IMPRESSION: 1. Relatively diffuse bilateral interstitial opacities with fine nodularity. These may relate to interstitial pneumonitis. There is no dense consolidation seen. 2. Nonspecific small mediastinal lymph nodes. CT ABDOMEN AND PELVIS WITHOUT CONTRAST: TECHNIQUE: No contrast administered per request of the referring provider. A dose reduction protocol was used. Compared with 07/13/2015. FINDINGS: There is some limitation of detail due to the lack of administered contrast. There is hepatomegaly with fatty infiltration of the liver. There are calcified granulomas in the spleen from old granulomatous disease. The adrenal glands and pancreas are unremarkable. The gallbladder is surgically absent. There are small nonobstructing stones in the left kidney. There is no obstructing renal stone or hydronephrosis identified. There is some distention of portions of small bowel and colon. There is mild edema of the mesentery area. There is no abscess identified. There is no free air. There is no substantial free fluid identified. There has been previous hysterectomy. IMPRESSION: 1. Hepatomegaly with fatty infiltration of the liver. 2. Small nonobstructing stones in left kidney. No hydronephrosis. 3. Nonspecific mild to moderate distention of portions of small bowel and colon. Mild edema of mesentery. 4. No abscess. No free air. The on-call radiologist provided preliminary results at 8:05 p.m. on 04/27/2016.
[2016-04-28] MEDS: LIPOSYN 20% 250 ML IV SCH (14:36)
[2016-04-28] MEDS: SUBOXONE 8 MG/2 MG SL SCH ×2 (14:46→22:52)
[2016-04-28] MEDS: MERREM 1 GM in NS 50 ML IV SCH ×2 (16:05→22:52)
[2016-04-28] MEDS: ROBITUSSIN PO PRN (16:23)
[2016-04-28] MEDS: TESSALON PO SCH (17:52)
[2016-04-28] MEDS: DUONEB (A & A) INH SCH ×2 (19:28→23:30)
[2016-04-28] MEDS ORDERED: CALCIUM GLUCONATE 1 GM in NS 50 ML IV ONE (20:00)
[2016-04-28] MEDS: XANAX PO SCH (20:00)
--- NOTE | 2016-04-28 22:32 | PROGRESS NOTE ---
DATE: 04/28/2016 SUBJECTIVE: The patient complains of some nausea but has not vomited today. She is requesting her Ativan and Ambien be restarted. OBJECTIVE: Vital Signs: Temperature 97 degrees, blood pressure 130/62, heart rate 88, respirations 20, O2 saturation 95% on room air. General: This is a middle-aged female, lying in bed, in no acute distress. Head: Normocephalic, atraumatic. Heart: S1, S2 normal. Regular rate and rhythm. Lungs: Clear to auscultation bilaterally. No wheezes, no rales, no rhonchi. Abdomen: Positive bowel sounds. Soft, nontender, nondistended. Extremities: No edema. No cyanosis. No calf tenderness. Neurologic: The patient is alert and oriented x3. No focal neurologic deficits noted. LABS: White blood cell count 4.6, hemoglobin 8.2, hematocrit 25, platelets 288,000. Sodium 141, potassium 2.9, chloride 109, CO2 22, BUN 4, creatinine 1. Glucose 110, calcium 6.7, phosphorus 2.4, magnesium 1.9, albumin 1.5. ASSESSMENT AND PLAN: 1. Persistent nausea, vomiting and diarrhea. We will continue with IV fluid hydration as well as start the patient on IV Protonix. GI has been consulted. We await further recommendations. The patient continues to have multiple episodes of diarrhea. We will order stool studies. 2. Pneumonitis. We will start the patient on Merrem. 3. Vitamin D deficiency. We will start the patient on vitamin D replacement. 4. Folate deficiency. We will start the patient on folic acid. 5. History of opioid dependence. Continue on Suboxone. 6. Hypokalemia. We will replace the patient's potassium. 7. Hypophosphatemia. We will replace the patient's phosphorus. 8. Hypocalcemia. We will replace the patient's calcium. 9. Iron-deficiency anemia. We will start the patient on iron supplementation. 10. Anxiety disorder. Continue on Xanax.
[2016-04-28] MEDS: NS 1,000 ML IV SCH (22:52)
[2016-04-28] MEDS: VITAMIN D PO SCH (22:53)
[2016-04-28] MEDS: AMBIEN PO SCH (22:54)
[2016-04-28] MEDS: PROTONIX IV SCH (22:54)
[2016-04-29] MEDS: DUONEB (A & A) INH SCH ×6 (03:51→23:35)
[2016-04-29] MEDS: CLINIMIX E 4.25%-5% SOLUTION 1,000 ML IV SCH ×2 (04:41→16:56)
[2016-04-29] MEDS: ZOFRAN IV PRN ×4 (04:47→21:32)
[2016-04-29] MEDS ORDERED: FLUZONE QUAD 2016-2017 SYRINGE IM ONE (06:00)
[2016-04-29 06:08] LABS: BASO% 0.7 % (0.0-0.8); EOS# 0.06 X1000 (0.0-0.7); EOS% 1.1 % (0.0-10.0); HEMATOCRIT 27.8 % (37.0-47.0); HEMOGLOBIN 8.6 g/dL (12.0-16.0); IMM GRAN# 0.03 X1000 (0.0-0.04); IMM GRAN% 0.5 % (0.0-0.5); LYMPH# 1.66 X1000 (1.2-3.4); LYMPH% 29.4 % (20.5-51.1); MANUAL DIFF NEEDED? YES; MCH 30.7 PG (27-31); MCHC 30.9 g/dL (33-37); MCV 99.3 FL (81-99); MONO# 1.27 X1000 (0.11-0.59); MONO% 22.5 % (1.7-9.3); MPV 9.9 FL (7.4-10.4); NEUT% 45.8 % (42.2-75.2); PLT 274 X1000 (130-400)
[2016-04-29] MEDS ORDERED: BLISTEX MEDICATED BERRY LIP BALM TOP PRN (06:14)
[2016-04-29] MEDS ORDERED: VASELINE TOP PRN (06:15)
[2016-04-29 06:18] LABS: AGAP 9; ALBUMIN 1.6 g/dL (3.5-5.0); ALKALINE PHOSPHATASE 179 U/L (32-104); BUN 6 mg/dL (8-22); CHLORIDE 113 mmol/L (98-107); COSMO 278; GOT 20 U/L (10-30); GPT 46 U/L (10-36); MAGNESIUM 1.5 mg/dL (1.5-2.7); POTASSIUM 4.7 mmol/L (3.5-5.1); SODIUM 141 mmol/L (136-145); TCO2 19 mmol/L (25-35); TOTAL BILIRUBIN 0.64 mg/dL (0.20-1.00); TOTAL PROTEIN 4.4 g/dL (6.3-8.3)
[2016-04-29 06:21] LABS: CALCIUM 7.1 mg/dL (8.8-10.2)
[2016-04-29] MEDS: MERREM 1 GM in NS 50 ML IV SCH ×2 (07:00→16:58)
[2016-04-29] MEDS: PROTONIX IV SCH ×3 (07:00→19:49)
[2016-04-29] MEDS: LIPOSYN 20% 250 ML IV SCH (07:00)
[2016-04-29 07:07] LABS: BASO 12 % (0-1); LYMPHS 21 % (21-51); MONO 16 % (1-9)
[2016-04-29] MEDS: LEVAQUIN 250 MG/D5W 50 ML IV SCH (10:43)
[2016-04-29] MEDS: TESSALON PO SCH ×3 (10:43→22:54)
[2016-04-29] MEDS: SUBOXONE 8 MG/2 MG SL SCH ×2 (10:43→21:13)
[2016-04-29] MEDS: XANAX PO SCH ×2 (10:43→21:14)
[2016-04-29] MEDS: NICODERM PATCH TD SCH (10:43)
[2016-04-29] MEDS: FOLIC ACID PO SCH (10:43)
[2016-04-29] MEDS: NEUTRA-PHOS PO SCH (10:45)
[2016-04-29 10:58] LABS: HEPATITIS PROFILE ACUTE SEE COMMENTS (())
--- NOTE | 2016-04-29 10:59 | CONSULTATION ---
DATE OF CONSULTATION: 04/28/2016 HISTORY OF PRESENT ILLNESS: This is a 41-year-old female with complicated surgical history. This all began with apparently ovarian cancer that was resected she had recurrence complicated by a bowel injury that required multiple re-operations for perforation and peritonitis. She has had subsequent complications related to that including what appears to be a delayed abdominal closure. She has had exploratory laparotomies for bowel obstructions and now carries a diagnosis short bowel syndrome. Most recent operation was in January and this sounds like an exploratory laparotomy. All of her operations have coursed over the last couple years. All of these surgeries have been done in [place] and [place] by Dr. Chow and Dr. Cisneros in [place]. She presents now with long-standing nausea, vomiting, and diarrhea. Initial labs showed significant electrolyte derangements and she has been on TPN and has undergone a workup of this while here. I was called for concerns of some drainage from the inferior aspect of her wound. PAST MEDICAL HISTORY: 1. History of ovarian cancer. 2. History of opiate abuse, now on Suboxone. 3. Panic disorder. 4. Hypertension. 5. 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 PAST SURGICAL HISTORY: She has had a hysterectomy, oophorectomy, presumably a colon resection, multiple small bowel resections, multiple exploratory laparotomies, cholecystectomy. CURRENT MEDICATIONS: Includes a Suboxone. They have her on antibiotics and TPN while here. SOCIAL HISTORY: She is a current smoker. Denies significant alcohol or IV drug abuse. FAMILY HISTORY: Coronary disease. REVIEW OF SYSTEMS: Ten point negative except for what is mentioned in HPI. PHYSICAL EXAMINATION: Vital Signs: Temp 97.8 degrees, pulse 85, blood pressure 157/89, O2 saturation 99% on room air. General: She is a very tremulous, cachectic, and ill-appearing white female. She is quite somnolent. Dozes off during conversation. HEENT: No scleral icterus. Cardiovascular: Normal rate. Regular rhythm. Pulmonary: No increased work of breathing. Abdomen: Soft, nontender, nondistended. There is a large midline hernia with loss of domain. There is pretty much skin overlying bowel with some granulation tissue in the inferior aspect of wound. I do not see any obvious succus or purulence drainage from the wound. Integumentary: Otherwise warm and dry. She is very thin throughout. LABS: White count 4.6, hematocrit is 25, platelets are 288. Sodium is 141. Potassium 2.9; it was 2.3 yesterday. Bicarb 22; it was 18 yesterday. Creatinine is 1 from 1.6. Glucose 110. Calcium is low at 6.7. Magnesium was 1.3 yesterday; it is 1.9 today. Mild elevation transaminases and alkaline phosphatase. Bilirubin is normal. Albumin is 1.5. Her pre-albumin is 6.7. Urinalysis shows no signs of infection. UDS positive for opiates and benzodiazepines. CT of abdomen and pelvis shows: 1. Hepatomegaly with fatty infiltration liver. 2. Small obstructing stones in left kidney. 3. [id number] distention of portions of small bowel and colon. 4. Mild edema the mesentery. No abscess. No free air. ASSESSMENT: This is a 41-year-old female with a complicated surgical history resulting from multiple abdominal catastrophes, who now likely has short bowel syndrome given her multiple bowel resections with profound electrolyte derangements. I also suspect some form of withdrawal as she is quite tremulous and opiate withdrawal could be the source of her diarrhea, nausea, and vomiting. She sounds to have been fired by Dr. Cisneros in [place]. Unclear of the details of this. We do not have her operative reports. Her wound is noninfected. She has a hernia here and there is high likelihood of ultimately developing enterocutaneous fistula but I do not see any signs of this now. PLAN: She needs aggressive electrolyte replacement and nutritional support. She would be a high risk for refeeding syndrome given her profoundly malnourishment, cachectic state. Suspect short bowel syndrome based off her appearance and her surgical history. Would likely need TPN indefinitely but could try nutritional support with Ensure, full liquid diet to see how this progresses. Would recommend contacting Dr. Cisneros's office and arranging transfer back to [place] and/or a tertiary center given her complicated surgical history. At this point given she is profoundly malnourished with significant electrolyte derangements, there is not an operation especially an elective operation that would be indicated in her as she would most definitely have another grave outcome from this. Will continue to follow along but do not plan any surgical intervention. I have recommend a Vaseline gauze to cover the inferior aspect of her wound and dry gauze. I do not recommend debriding this as there is intestine directly underlying this wound. Apparently there were recommendations to debride this at some point. Again, I would adamantly recommend against any debridement of her wound. SHIELA
--- NOTE | 2016-04-29 11:39 | CONSULTATION ---
DATE OF CONSULTATION: 04/28/2016 REFERRING PHYSICIAN: Dr. Mayelin Horta M.D. PRIMARY CARE PHYSICIAN: Dr. Patricia Vargas M.D. PRIMARY SURGEON: Dr. Shahrzad Cisneros M.D. PRIMARY CUTTER TENDER SURGEON: Dr. Daljit Diego MD. INDICATION FOR CONSULTATION: 1. Nausea with vomiting. 2. Abdominal pain. HISTORY OF PRESENT ILLNESS: The patient is a severely malnourished white female who presents with multiple concerns. Her concerns include nausea with vomiting, abdominal pain, diarrhea, drainage from her midline incision, ongoing weight loss, dysphagia, [id number] derangements, vitamin deficiencies, elevated liver function tests, nutritional marasmus and severe protein calorie malnutrition. The patient states that she was diagnosed with ovarian cancer at age 23 years of age in [place], [place]. She underwent surgical resection of her ovaries by Dr. Dawson Whitaker M.D. in [place] at the local hospital. She did well for approximately 12 months. She reports that she developed an orange size recurrence and underwent a hysterectomy by Dr. Jono Chow at [facility]. Unfortunately, during her surgery, her small bowel was lacerated in multiple places and she describes multiple small bowel enterotomies. She notes that they quickly performed surgical repair of the tears to her small intestine however, she developed a gangrenous small bowel and colon requiring multiple surgical resections due to ischemic bowel. This resulted in short bowel syndrome. Her course was complicated by adhesions and bowel obstructions that required reoperation. In December 2015, she underwent reconstructive surgery by Dr. Cisneros at [facility]. Since her surgery in December, she has been struggling to heal the wounds. The lower portion of her incision has been draining and has never healed since surgery. She continues to have copious amounts of green bilious secretions draining from the lower portion of her incision on a daily basis. Because of her clinical decline, she was brought to the emergency room by family. They also note in the chart that she has struggled with opioid and benzodiazepine abuse. She participated in the [facility] drug treatment program in December 2015 and is currently on Suboxone. REVIEW OF SYSTEMS: Is remarkable for dysphagia. Please note that on evening rounds, I heard the patient coughing and choking in the room. I walked into her room and performed a Heimlich maneuver only to discover that this is the patient we are being asked to see. Although the patient is on clear liquid diet, she was eating waffle fries and other foods from the restaurant brought in by family. She reports abdominal pain post Heimlich manuver. She had active wheezing and stridor during the food impaction but was able to pass it successfully. Post Heimlich maneuver, her oxygen saturation was 99% on room air. PAST MEDICAL HISTORY: 1. Myocardial infarction August 2015. 2. Hypertension. 3. Asthma. 4. DVT of the right upper extremity in 2016. 5. Iron-deficiency anemia. 6. OCD. 7. Paranoid depression. 8. IBS. 9. Short bowel syndrome. 10. Ovarian cancer. 11. Polysubstance abuse with inpatient treatment for 4 months in 2005. PAST SURGICAL HISTORY: 1. Total abdominal hysterectomy. 2. Oophorectomy. 3. Colon resection, partial. 4. Small bowel resection, partial. 5. Adhesiolysis. 6. Cholecystectomy. SOCIAL HISTORY: The patient has smoked 1-2 packs per day for 25 years. There is no report of alcohol ingestion. Relative to drugs, she began smoking marijuana at age 16, begin using opioids at age 30 and benzodiazepines at age 30. In December 2015 she was a participant in the [facility] program. She is currently on Suboxone. MEDICATION ALLERGIES: Penicillin. HOME MEDICATIONS: 1. Suboxone. 2. Ambien. 3. Septra DS. 4. Gas-X. 5. Phenergan. 6. Lasix. 7. Nexium 24. 8. Lexapro. 9. Librium. FAMILY HISTORY: Noncontributory. On exam, she is an extremely emaciated white female in no acute distress after the Heimlich maneuver was performed. She is cachectic appearing. Her blood pressure is 157/ 89, pulse is 75 respirations 20, temperature of 97.8 degrees. Her oxygen saturation is 99%. Her BMI is 15.3.HEENT: Negative for jaundice. Her conjunctivae are pale. Oral mucosal membranes are dry. Neck: Is supple. Chest: Is remarkable for inspiratory and expiratory wheezes. The stridor that was present during the food impaction has resolved. Cardiovascular Examination: Reveals regular rate and rhythm with no gallops or rubs. Abdominal Exam: Reveals normoactive bowel sounds. The abdomen is soft, with tenderness around the incision. There is a open wound in the lower end of her central incision. Extremities: Bilaterally are remarkable for trace edema. OBJECTIVE DATA: Reveals a hemoglobin of 8.2 with hematocrit of 25.2, and white count of 4.60. She has 288,000 platelets. Sodium is 141, potassium 2.9, chloride 109, CO2 22, BUN 4, creatinine 1.0, with a glucose of 110. Calcium is 6.7, phosphorus 2.4, magnesium 1.9, total bilirubin 0.77, AST 30, ALT 60, alkaline phosphatase 192, total protein 3.9, and albumin 1.5. TSH is 0.99, folic acid 3.4, B12 was greater than 2000, vitamin D is 6.7, pre-albumin is 6.7, plasma lactate is 2.5. IMPRESSION: 1. Short-bowel syndrome. 2. Irritable bowel syndrome. 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 4. Dysphagia requiring Heimlich maneuver at the bedside. 5. Severe protein calorie malnutrition. RECOMMENDATION: 1. I recommend a surgical consult to evaluate the lower end of her abdominal incision as I am very concerned about the presence of an enterocutaneous fistula. 2. Continue current medications including Protonix. 3. I am concerned that she has so many nutritional deficiencies and additional needs. We may not be able to provide all of her needed services in [place]. For the present time, I would continue current management. I will discuss treatment options of her various concerns with Dr. Horta, her primary hospitalist to determine the best treatment plan. She may need transfer to [facility] or [place] for gut rehabilitation and assessment for enterocutaneous fistula. 4. I spoke with Dr. Daljit Diego who will see the patient within the next 12-24 hours. 5. Additional recommendations to follow based on her clinical course. [facility]
[2016-04-29] MEDS ORDERED: MAGNESIUM SULFATE 2 GM/S.W.I. 50 ML IV ONE (12:15)
[2016-04-29] MEDS ORDERED: SODIUM PHOSPHATE 30 MMOL in NS 250 ML IV ONE (14:00)
--- NOTE | 2016-04-29 15:59 | PROGRESS NOTE ---
DATE: 04/29/2016 SUBJECTIVE: The patient was sitting up eating a clear liquid diet this morning for breakfast. She does complain of occasional abdominal pain but no nausea or vomiting at this time. OBJECTIVE: Vital Signs: Temperature 98.3 degrees, blood pressure 131/79, heart rate 79, respirations 16, O2 saturations 97% on room air. General: This is a middle-aged female, sitting up in bed, in no acute distress. Head normocephalic, atraumatic. Heart: S1, S2. Normal. Regular rate and rhythm. Lungs clear to auscultation bilaterally. No wheezes. No rales. No rhonchi. Abdomen: Positive bowel sounds. Soft, nontender, nondistended. Extremities: No edema. No cyanosis. No calf tenderness. Neurologic: The patient is alert and oriented x3. LABORATORY DATA: White blood cell count 5.6, hemoglobin 8.6, hematocrit 27, platelets 274,000. Sodium 141, potassium 4.7, chloride 113, CO2 of 19. BUN 6, creatinine 0.9, glucose 89. Calcium 7.1. Phosphorus 2.3. Magnesium 1.5. Albumin 1.6. ASSESSMENT AND PLAN: 1. Suspected short bowel syndrome. The patient may benefit from being started on total parenteral nutrition. We will consult the dietitian for further recommendations. In the mean time, the patient will remain on a clear liquid diet pending the results of the modified barium swallow. 2. Dysphagia. Modified barium swallow has been ordered to be done tomorrow morning. 3. Multiple abdominal surgeries. I called Dr. Cisneros's office and was told that the patient was dismissed from her practice on 12/14/2015 due to multiple no shows for appointments and disruptive behavior at the office. 4. Folate deficiency. Continue with folic acid replacement. 5. Vitamin D deficiency. Continue with vitamin D replacement. 6. Pneumonitis. Continue on IV Merrem. 7. Hypophosphatemia. We will replace the patient's phosphorus. 8. Hypomagnesemia. We will replace the patient's magnesium. 9. Iron-deficiency anemia. We will continue on iron supplementation. 10. Anxiety disorder. Continue on Xanax. 11. Abdominal wound. Continue with local wound care. General Surgery is following. 12. Severe protein calorie malnutrition. The patient will most likely require total parenteral nutrition to keep up with her nutritional requirements. We will await recommendations from the dietitian and the software configuration manager. 13. Deep vein thrombosis prophylaxis. We will start the patient on Lovenox.
[2016-04-29] MEDS: NS 1,000 ML IV SCH (16:56)
[2016-04-29] MEDS: SODIUM CHLORIDE 0.9% INJ SCH (16:58)
[2016-04-29] MEDS: LOVENOX SUBQ SCH (16:58)
[2016-04-29] MEDS: AMBIEN PO SCH (21:14)
[2016-04-30] MEDS: MERREM 1 GM in NS 50 ML IV SCH ×3 (01:41→17:50)
[2016-04-30] MEDS: DUONEB (A & A) INH SCH ×5 (03:44→19:33)
[2016-04-30] MEDS: LIPOSYN 20% 250 ML IV SCH ×2 (04:13→22:49)
[2016-04-30] MEDS: NS 1,000 ML IV SCH (04:27)
[2016-04-30] MEDS: CLINIMIX E 4.25%-5% SOLUTION 1,000 ML IV SCH ×2 (04:28→13:42)
[2016-04-30] MEDS: ZOFRAN IV PRN ×5 (05:14→22:48)
[2016-04-30] MEDS: ROBITUSSIN PO PRN (05:17)
--- NOTE | 2016-04-30 05:21 | EKG Report ---
Test Performed on : 04/29/2016 6:50:34 PM Test Reason : suspected change in heart rhythm Blood Pressure : / mmHG Vent. Rate : 087 BPM Atrial Rate : 087 BPM P-R Int : 172 ms QRS Dur : 062 ms QT Int : 336 ms P-R-T Axes : 051 025 056 degrees QTc Int : 404 ms Normal sinus rhythm. Low voltage QRS Cannot rule out Anteroseptal infarct (cited on or before 26-APR-2016) Abnormal ECG When compared with ECG of 26-APR-2016 20:08, (Unconfirmed) premature supraventricular complexes. are no longer present Confirmed by Wesley Trevino MD ([id number]) on 04/30/2016 9:44:57 PM
[2016-04-30] MEDS ORDERED: PNEUMOVAX 23 IM ONE (05:26)
[2016-04-30 05:51] LABS: MANUAL DIFF NEEDED? NO
[2016-04-30] MEDS ORDERED: SODIUM CHLORIDE 0.9% 10 ML ONE (06:19)
[2016-04-30 06:21] LABS: BASO% 0.4 % (0.0-0.8); EOS# 0.08 X1000 (0.0-0.7); HEMATOCRIT 30.1 % (37.0-47.0); HEMOGLOBIN 9.3 g/dL (12.0-16.0); IMM GRAN# 0.02 X1000 (0.0-0.04); IMM GRAN% 0.2 % (0.0-0.5); LYMPH% 14.7 % (20.5-51.1); MCH 31.8 PG (27-31); MCHC 30.9 g/dL (33-37); MCV 103.1 FL (81-99); MONO# 1.45 X1000 (0.11-0.59); MONO% 17.7 % (1.7-9.3); MPV 10.2 FL (7.4-10.4); PLT 287 X1000 (130-400); RBC 2.92 XMIL (4.2-5.4)
[2016-04-30] MEDS: PROTONIX IV SCH ×2 (06:29→17:51)
[2016-04-30] MEDS: SODIUM CHLORIDE 0.9% INJ SCH (06:29)
[2016-04-30 06:39] LABS: AGAP 10; ALBUMIN 1.7 g/dL (3.5-5.0); ALKALINE PHOSPHATASE 172 U/L (32-104); BUN 7 mg/dL (8-22); CALCIUM 7.1 mg/dL (8.8-10.2); CHLORIDE 108 mmol/L (98-107); COSMO 271; GOT 20 U/L (10-30); GPT 36 U/L (10-36); MAGNESIUM 1.7 mg/dL (1.5-2.7); POTASSIUM 5.4 mmol/L (3.5-5.1); SODIUM 137 mmol/L (136-145); TCO2 19 mmol/L (25-35); TOTAL BILIRUBIN 0.53 mg/dL (0.20-1.00); TOTAL PROTEIN 4.8 g/dL (6.3-8.3)
[2016-04-30] MEDS: SUBOXONE 8 MG/2 MG SL SCH ×2 (09:05→22:49)
[2016-04-30] MEDS: LEVAQUIN 250 MG/D5W 50 ML IV SCH (09:05)
[2016-04-30] MEDS: XANAX PO SCH ×2 (09:06→22:48)
[2016-04-30] MEDS: NICODERM PATCH TD SCH (09:06)
[2016-04-30] MEDS: FOLIC ACID PO SCH (09:06)
[2016-04-30] MEDS: TESSALON PO SCH ×3 (09:06→22:48)
[2016-04-30] MEDS: TYLENOL PO PRN (12:16)
[2016-04-30 13:04] LABS: HCV BY PCR SEE COMMENTS (()); HCV CHARGE YES
--- NOTE | 2016-04-30 13:10 | Diag Imaging Result Document ---
PROCEDURE NAME: BA SWALLOW W/VIDEO SPEECH THER - 04/30/2016 MODIFIED BARIUM SWALLOW WITH THE SPEECH THERAPIST: FINDINGS: Normal passage of thin barium and barium mixed with pudding through the esophagus. Normal primary and secondary peristalsis. No aspiration occurred during the exam. IMPRESSION: Normal modified barium swallow. Eighty-six films submitted. Fluoroscopy time was 21 seconds. Total dose is 13 mGy. MTDD
[2016-04-30] MEDS: LOVENOX SUBQ SCH (14:47)
[2016-04-30] MEDS ORDERED: CALMOSEPTINE OINTMENT TOP PRN (18:37)
[2016-04-30] MEDS ORDERED: SODIUM BICARBONATE 8.4% IV PUSH ONE (19:24)
[2016-04-30] MEDS ORDERED: ALBUTEROL 0.5% INH CONC FOR HYPERKALEMIA INH ONE (19:24)
[2016-04-30] MEDS ORDERED: D50W SYRINGE IV ONE (19:25)
[2016-04-30] MEDS ORDERED: HUMULIN R IV ONE (19:26)
--- NOTE | 2016-04-30 20:34 | PROGRESS NOTE ---
DATE: 04/30/2016 SUBJECTIVE: The patient complains of persistent diarrhea. She also complains of occasional abdominal pain. OBJECTIVE: Vital Signs: Temperature 97 degrees, blood pressure 129/90, heart rate 86, respirations 18, O2 saturations 100% on room air. General: This is a chronically ill-appearing, middle-aged female, sitting in bed, in no acute distress. Head: Normocephalic, atraumatic. Heart: S1, S2 normal. Regular rate and rhythm. Lungs: Clear to auscultation bilaterally. No wheezes, no rales, no rhonchi. Abdomen: Positive bowel sounds. Soft, nontender, nondistended. Extremities: No edema. No cyanosis. No calf tenderness. Neurologic: The patient is alert and oriented x3. LABS: White blood cell count 8.1, hemoglobin 9.3, hematocrit 30, platelets 287,000. Sodium 137, potassium 5.7, chloride 108, CO2 19, BUN 7, creatinine 0.8, glucose 87, magnesium 1.7, phosphorus 3.7, calcium 7.1, alkaline phosphatase 172, total protein. 4.8. ASSESSMENT AND PLAN: 1. Short-bowel syndrome. The patient continues to have diarrhea. She is currently on a full liquid diet with Ensure. The modified barium swallow was negative for aspiration. We will await further recommendations from GI. 2. Folate deficiency. Continue on folic acid replacement. 3. Pneumonitis. Continue on IV antibiotic therapy. We will order a 2 view chest x-ray to be done in the morning. 4. Multiple abdominal surgeries. Aware. 5. Vitamin D deficiency. Continue with vitamin D replacement. 6. Hyperkalemia. I suspect that the Clinimix is contributing to the patient's hyperkalemia. We will discontinue the Clinimix at this time. 7. Iron-deficiency anemia. Continue on iron supplementation. 8. Anxiety disorder. Continue on Xanax. 9. Abdominal wound. Continue with local wound care. 10. Severe protein calorie malnutrition. The patient may require TPN to maintain adequate nutrition. 11. Deep vein thrombosis prophylaxis. Continue on Lovenox.
[2016-04-30] MEDS: AMBIEN PO SCH (22:48)
[2016-05-01] MEDS: DUONEB (A & A) INH SCH ×7 (00:19→23:21)
[2016-05-01] MEDS: MERREM 1 GM in NS 50 ML IV SCH ×3 (02:30→17:53)
[2016-05-01] MEDS: SODIUM CHLORIDE 0.9% INJ SCH ×2 (06:08→17:53)
[2016-05-01] MEDS: PROTONIX IV SCH ×2 (06:08→17:53)
[2016-05-01] MEDS: ROBITUSSIN PO PRN (06:08)
[2016-05-01] MEDS: ZOFRAN IV PRN ×3 (06:18→22:27)
[2016-05-01 06:26] LABS: AGAP 9; BUN 8 mg/dL (8-22); CALCIUM 7.2 mg/dL (8.8-10.2); CHLORIDE 108 mmol/L (98-107); COSMO 266; MAGNESIUM 1.5 mg/dL (1.5-2.7); SODIUM 134 mmol/L (136-145); TCO2 17 mmol/L (25-35)
[2016-05-01 06:29] LABS: POTASSIUM 6.2 mmol/L (3.5-5.1)
[2016-05-01] MEDS ORDERED: SODIUM BICARBONATE 8.4% IV PUSH ONE (06:31)
[2016-05-01] MEDS ORDERED: KAYEXALATE PO ONE (06:32)
[2016-05-01] MEDS ORDERED: HUMULIN R IV ONE (06:32)
[2016-05-01] MEDS ORDERED: D50W SYRINGE IV ONE (06:32)
[2016-05-01] MEDS ORDERED: ALBUTEROL 0.5% INH CONC FOR HYPERKALEMIA INH ONE (06:33)
[2016-05-01] MEDS ORDERED: CALCIUM GLUCONATE 1 GM in NS 50 ML IV ONE (06:45)
[2016-05-01] MEDS ORDERED: MAGNESIUM SULFATE 2 GM/S.W.I. 50 ML IV ONE (07:00)
[2016-05-01] MEDS ORDERED: SODIUM PHOSPHATE 30 MMOL in NS 250 ML IV ONE (07:30)
[2016-05-01] MEDS: FOLIC ACID PO SCH (07:45)
[2016-05-01] MEDS: SUBOXONE 8 MG/2 MG SL SCH ×3 (07:55→22:27)
[2016-05-01] MEDS: XANAX PO SCH ×3 (07:55→22:27)
[2016-05-01] MEDS: TESSALON PO SCH ×4 (07:55→22:27)
[2016-05-01] MEDS: NICODERM PATCH TD SCH ×2 (07:55→09:17)
[2016-05-01] MEDS ORDERED: NS 500 ML ONE (08:21)
[2016-05-01 08:48] LABS: MANUAL DIFF NEEDED? NO
[2016-05-01 08:55] LABS: BASO% 0.3 % (0.0-0.8); EOS# 0.03 X1000 (0.0-0.7); EOS% 0.3 % (0.0-10.0); HEMATOCRIT 28.2 % (37.0-47.0); HEMOGLOBIN 8.5 g/dL (12.0-16.0); IMM GRAN# 0.03 X1000 (0.0-0.04); IMM GRAN% 0.3 % (0.0-0.5); LYMPH# 1.55 X1000 (1.2-3.4); LYMPH% 17.1 % (20.5-51.1); MCH 31.4 PG (27-31); MCHC 30.1 g/dL (33-37); MCV 104.1 FL (81-99); MONO# 1.71 X1000 (0.11-0.59); MONO% 18.9 % (1.7-9.3); MPV 10.3 FL (7.4-10.4); NEUT% 63.1 % (42.2-75.2); PLT 231 X1000 (130-400); RBC 2.71 XMIL (4.2-5.4)
[2016-05-01] MEDS ORDERED: ATIVAN IV ONE (10:17)
[2016-05-01] MEDS ORDERED: ATIVAN IM ONE (10:36)
[2016-05-01 11:00] LABS: INR 1.12; PROTIME 11.9 Seconds (9.2-11.7)
[2016-05-01] MEDS ORDERED: NS 250 ML ONE (12:37)
--- NOTE | 2016-05-01 14:17 | Diag Imaging Result Document ---
PROCEDURE NAME: CHEST-2 VIEWS - 05/01/2016 FRONTAL AND LATERAL CHEST, TWO VIEWS: COMPARISON: 04/26/2016. FINDINGS: A right-sided PICC line has been placed. The tip overlies the right atrium. No pneumothorax. The heart is not enlarged. The vessels are not distended. No pleural effusions. Increased density over the lower lungs is believed to be due to the breasts and implants. No definite infiltrates on the lateral view. No pleural effusions. IMPRESSION: No definite pneumonia.
[2016-05-01] MEDS: LASIX IV SCH (14:40)
[2016-05-01] MEDS: ALBUMIN 25% IV SCH (14:40)
[2016-05-01] MEDS: LOVENOX SUBQ SCH (14:48)
[2016-05-01] MEDS: LEVAQUIN 250 MG/D5W 50 ML IV SCH (16:31)
[2016-05-01] MEDS: TYLENOL PO PRN (18:41)
--- NOTE | 2016-05-01 18:43 | PROGRESS NOTE ---
DATE: 05/01/2016 SUBJECTIVE: The patient complains of diarrhea and anxiety. OBJECTIVE: Vital Signs: Temperature 98.6 degrees, blood pressure 109/72, heart rate 90, respirations 15, O2 saturation 98% on room air. General: This is a young female, lying in bed, in no acute distress. Head: Normocephalic, atraumatic. Heart: S1, S2 normal. Regular rate and rhythm. Lungs: Clear to auscultation bilaterally. Abdomen: Positive bowel sounds. Soft, nontender, nondistended. Extremities: +1 edema in the lower extremities. Neurologic: The patient is alert and oriented but very anxious. LABS: White blood cell count 9, hemoglobin 8.5, hematocrit 28, platelets 231,000. Sodium 134, potassium 4.4, chloride 108, CO2 17, BUN 8, creatinine 0.9, glucose 80, calcium 7.2, phosphorus 2.6, magnesium 1.5. ASSESSMENT AND PLAN: 1. Short bowel syndrome. A PICC line was placed today and the patient will be started on TPN. 2. Folate deficiency. Continue on folic acid replacement. 3. Pneumonitis. Improved. We will complete a 7 day course of antibiotic therapy and then discontinue the antibiotics. 4. Electrolyte imbalance. We will replace the patient's magnesium and phosphorus. 5. Hyperkalemia. The patient received the hyperkalemia protocol and her repeat potassium is now 4.4. 6. Vitamin D deficiency. Continue with vitamin D replacement. 7. Multiple abdominal surgeries. Aware. 8. Anxiety disorder. Continue on scheduled Xanax. 9. Abdominal wound. Continue with local wound care. 10. Severe protein calorie malnutrition. The patient is being started on TPN today. 11. Deep vein thrombosis prophylaxis. Continue on Lovenox.
[2016-05-01] MEDS ORDERED: TPN ELECTROLYTES 20 ML, MAGNESIUM SULFATE 5 MEQ, POTASSIUM CHLORIDE 20 MEQ, SODIUM PHOS... IV SCH ×8 (20:00)
[2016-05-01 20:20] LABS: AGAP 13; BUN 8 mg/dL (8-22); CALCIUM 7.8 mg/dL (8.8-10.2); CHLORIDE 105 mmol/L (98-107); COSMO 283; GOT 19 U/L (10-30); MAGNESIUM 1.8 mg/dL (1.5-2.7); PREALBUMIN 11.7 mg/dL (20-40); SODIUM 143 mmol/L (136-145); TCO2 25 mmol/L (25-35); TRIGLYCERIDES 178 mg/dL (35-135)
[2016-05-01] MEDS: LIPOSYN 20% 250 ML IV SCH (22:26)
[2016-05-01] MEDS: AMBIEN PO SCH (22:28)
[2016-05-02] MEDS: MERREM 1 GM in NS 50 ML IV SCH ×3 (01:32→17:21)
[2016-05-02] MEDS: DUONEB (A & A) INH SCH ×6 (03:11→23:32)
[2016-05-02] MEDS: PROTONIX IV SCH ×4 (05:28→18:48)
[2016-05-02] MEDS: SODIUM CHLORIDE 0.9% INJ SCH (05:28)
[2016-05-02 06:18] LABS: AGAP 7; BUN 9 mg/dL (8-22); CALCIUM 7.7 mg/dL (8.8-10.2); CHLORIDE 107 mmol/L (98-107); COSMO 285; POTASSIUM 4.1 mmol/L (3.5-5.1); SODIUM 144 mmol/L (136-145); TCO2 30 mmol/L (25-35)
[2016-05-02] MEDS: NICODERM PATCH TD SCH (09:07)
[2016-05-02] MEDS: LEVAQUIN 250 MG/D5W 50 ML IV SCH (09:07)
[2016-05-02] MEDS: TESSALON PO SCH ×3 (09:08→17:23)
[2016-05-02] MEDS: LASIX IV SCH (09:08)
[2016-05-02] MEDS: XANAX PO SCH ×2 (09:08→23:24)
[2016-05-02] MEDS: FOLIC ACID PO SCH (09:08)
[2016-05-02] MEDS: ZOFRAN IV PRN ×4 (09:09→23:25)
[2016-05-02] MEDS: SUBOXONE 8 MG/2 MG SL SCH ×2 (09:17→23:24)
[2016-05-02] MEDS: TYLENOL PO PRN ×2 (14:01→23:25)
[2016-05-02] MEDS: LOVENOX SUBQ SCH (14:02)
[2016-05-02] MEDS: ALBUMIN 25% IV SCH (14:27)
[2016-05-02 14:58] LABS: AGAP 11; BUN 9 mg/dL (8-22); CALCIUM 7.9 mg/dL (8.8-10.2); CHLORIDE 101 mmol/L (98-107); COSMO 274; GOT 20 U/L (10-30); MAGNESIUM 1.7 mg/dL (1.5-2.7); POTASSIUM 4.2 mmol/L (3.5-5.1); PREALBUMIN 10.9 mg/dL (20-40); SODIUM 138 mmol/L (136-145); TCO2 26 mmol/L (25-35); TRIGLYCERIDES 142 mg/dL (35-135)
--- NOTE | 2016-05-02 16:26 | PROGRESS NOTE ---
DATE: 05/02/2016 SUBJECTIVE: The patient is resting comfortably in bed. She has no complaints at this time. OBJECTIVE: Vital Signs: Temperature 98.2, blood pressure 117/63, heart rate 64, respirations 17, O2 saturations 100% on room air. General: This is a middle-aged female, lying in bed, in no acute distress. Head: Normocephalic, atraumatic. Heart: S1, S2 normal. Regular rate and rhythm. Lungs: Clear to auscultation bilaterally. No wheezing, no rales. No rhonchi. Abdomen: Positive bowel sounds. Soft, nontender, nondistended. Extremities: +1 edema. No cyanosis. No calf tenderness. Neurologic: The patient is alert and oriented x3. LABS: Reviewed. ASSESSMENT AND PLAN: 1. Short-bowel syndrome. Continue with total parenteral nutrition and dietary supplements. 2. Pneumonitis. Improved. Continue on IV Merrem. 3. Vitamin D deficiency. Continue on vitamin D replacement. 4. Folate deficiency. Continue with folic acid replacement. 5. Multiple abdominal surgeries. Aware. 6. Abdominal wound. Continue with local wound care. 7. Anxiety disorder. Continue on scheduled Xanax. 8. Opioid dependence. Continue on Suboxone. 9. Deep vein thrombosis prophylaxis. Continue on Lovenox.
[2016-05-02] MEDS ORDERED: ATIVAN IV ONE (17:39)
[2016-05-02] MEDS ORDERED: ATIVAN ONE (17:43)
[2016-05-02] MEDS: ROBITUSSIN PO PRN ×2 (17:51→23:37)
[2016-05-02] MEDS: TPN ELECTROLYTES 20 ML, MAGNESIUM SULFATE 5 MEQ, POTASSIUM CHLORIDE 20 MEQ, M.V.I.-12 1... IV SCH ×8 (23:00)
[2016-05-02] MEDS: LIPOSYN 20% 250 ML IV SCH (23:20)
[2016-05-02] MEDS: AMBIEN PO SCH (23:25)
[2016-05-03] MEDS: MERREM 1 GM in NS 50 ML IV SCH ×3 (00:02→17:04)
[2016-05-03] MEDS: DUONEB (A & A) INH SCH ×6 (03:20→23:19)
[2016-05-03] MEDS: PROTONIX IV SCH ×2 (06:20→18:30)
[2016-05-03] MEDS: SODIUM CHLORIDE 0.9% INJ SCH (06:20)
[2016-05-03 06:48] LABS: AGAP 10; BUN 11 mg/dL (8-22); CALCIUM 8.1 mg/dL (8.8-10.2); CHLORIDE 107 mmol/L (98-107); COSMO 288; MAGNESIUM 1.8 mg/dL (1.5-2.7); POTASSIUM 4.3 mmol/L (3.5-5.1); SODIUM 145 mmol/L (136-145); TCO2 28 mmol/L (25-35)
[2016-05-03 07:15] LABS: ALBUMIN 2.6 g/dL (3.5-5.0); ALKALINE PHOSPHATASE 104 U/L (32-104); DIRECT BILIRUBIN < 0.20 mg/dL (0.00-0.20); GOT 15 U/L (10-30); GPT 14 U/L (10-36); TOTAL BILIRUBIN 0.34 mg/dL (0.20-1.00); TOTAL PROTEIN 4.4 g/dL (6.3-8.3)
[2016-05-03] MEDS: LASIX IV SCH (09:58)
[2016-05-03] MEDS: TESSALON PO SCH ×3 (09:58→17:04)
[2016-05-03] MEDS: NICODERM PATCH TD SCH (09:58)
[2016-05-03] MEDS: TYLENOL PO PRN ×2 (10:00→17:07)
[2016-05-03] MEDS: XANAX PO SCH ×2 (10:01→21:55)
[2016-05-03] MEDS: ZOFRAN IV PRN ×4 (10:01→21:55)
[2016-05-03] MEDS: FOLIC ACID PO SCH (10:01)
[2016-05-03] MEDS: SUBOXONE 8 MG/2 MG SL SCH ×2 (10:01→21:55)
[2016-05-03] MEDS: ALBUMIN 25% IV SCH (10:01)
[2016-05-03] MEDS: LEVAQUIN 250 MG/D5W 50 ML IV SCH (13:00)
[2016-05-03] MEDS: ATIVAN IV PRN ×2 (13:47→20:30)
[2016-05-03] MEDS: LOVENOX SUBQ SCH (13:48)
[2016-05-03] MEDS: ROBITUSSIN PO PRN ×2 (17:04→22:00)
[2016-05-03] MEDS: AMBIEN PO SCH (21:55)
[2016-05-04] MEDS: MERREM 1 GM in NS 50 ML IV SCH ×3 (00:38→17:54)
[2016-05-04] MEDS: TPN ELECTROLYTES 20 ML, MAGNESIUM SULFATE 5 MEQ, POTASSIUM CHLORIDE 20 MEQ, M.V.I.-12 1... IV SCH ×16 (00:41→21:41)
[2016-05-04] MEDS: LIPOSYN 20% 250 ML IV SCH ×2 (00:41→21:41)
[2016-05-04] MEDS: ATIVAN IV PRN ×4 (02:25→21:55)
[2016-05-04] MEDS: TYLENOL PO PRN ×2 (02:26→13:18)
[2016-05-04] MEDS: ROBITUSSIN PO PRN ×2 (02:26→13:17)
[2016-05-04] MEDS: ZOFRAN IV PRN ×5 (02:26→21:42)
[2016-05-04] MEDS: DUONEB (A & A) INH SCH ×7 (03:00→23:36)
[2016-05-04 06:56] LABS: AGAP 10; ALBUMIN 2.9 g/dL (3.5-5.0); ALKALINE PHOSPHATASE 97 U/L (32-104); BUN 14 mg/dL (8-22); CALCIUM 8.4 mg/dL (8.8-10.2); CHLORIDE 103 mmol/L (98-107); COSMO 285; GOT 19 U/L (10-30); GPT 11 U/L (10-36); MAGNESIUM 1.7 mg/dL (1.5-2.7); POTASSIUM 4.3 mmol/L (3.5-5.1); SODIUM 143 mmol/L (136-145); TCO2 30 mmol/L (25-35); TOTAL PROTEIN 4.9 g/dL (6.3-8.3)
[2016-05-04] MEDS: PROTONIX IV SCH ×2 (06:56→17:53)
[2016-05-04] MEDS: SODIUM CHLORIDE 0.9% INJ SCH ×2 (06:56→17:54)
[2016-05-04] MEDS: LASIX IV SCH (08:56)
[2016-05-04] MEDS: FOLIC ACID PO SCH (08:56)
[2016-05-04] MEDS: NICODERM PATCH TD SCH (08:56)
[2016-05-04] MEDS: TESSALON PO SCH ×3 (08:56→17:58)
[2016-05-04] MEDS: SUBOXONE 8 MG/2 MG SL SCH ×2 (09:14→21:41)
[2016-05-04] MEDS: ALBUMIN 25% IV SCH (09:15)
[2016-05-04] MEDS: XANAX PO SCH ×3 (09:15→22:47)
[2016-05-04] MEDS: LEVAQUIN 250 MG/D5W 50 ML IV SCH (13:18)
[2016-05-04] MEDS: LOVENOX SUBQ SCH (13:19)
[2016-05-04] MEDS ORDERED: MAGNESIUM SULFATE 2 GM/S.W.I. 50 ML IV ONE (14:00)
[2016-05-04] MEDS: AMBIEN PO SCH (21:41)
[2016-05-05] MEDS: MERREM 1 GM in NS 50 ML IV SCH ×3 (01:14→18:26)
--- NOTE | 2016-05-05 02:43 | PROGRESS NOTE ---
DATE: 05/04/2016 SUBJECTIVE: The patient is resting comfortably. She does complain of episodes of anxiety. She has no other complaints. OBJECTIVE: Vital Signs: Temperature 98, blood pressure 123/82, heart rate ___ ____ respirations 18, O2 saturation 100% on room air. General: This is a middle-aged female, lying in bed, in no acute distress. HEENT: Head is normocephalic, atraumatic. Cardiovascular: S1 and S2 normal. Regular rate and rhythm. Lungs: Clear to auscultation bilaterally. No wheezes, no rales, no rhonchi. Abdomen: Positive bowel sounds. Soft, nontender, nondistended. Extremities: No edema, no cyanosis, no calf tenderness. Neurological: The patient is alert and oriented x3. No focal neurologic deficits noted. LABORATORIES: Sodium 142. Potassium 4.6, chloride 106, CO2 30. BUN 14, creatinine 0.9, glucose 86. ASSESSMENT AND PLAN: 1. Short bowel syndrome. Continue on TPN. 2. Pneumonitis. Improved. Will repeat a chest x-ray tomorrow. Continue on antibiotic therapy. 3. Vitamin D deficiency. Continue vitamin D replacement. 4. Multiple abdominal surgeries. Aware. 5. Abdominal wound. Continue with local wound care. 6. Anxiety disorder. Continue on Xanax. 7. Opioid dependence. Continue on Suboxone. 8. Deep venous thrombosis prophylaxis. Continue on Lovenox. 9. Continue with physical therapy. MTDD
[2016-05-05] MEDS: DUONEB (A & A) INH SCH ×5 (05:31→21:46)
[2016-05-05] MEDS: PROTONIX IV SCH ×3 (05:38→18:45)
[2016-05-05] MEDS: SODIUM CHLORIDE 0.9% INJ SCH ×2 (05:38→18:27)
[2016-05-05 07:07] LABS: AGAP 7; ALBUMIN 3.2 g/dL (3.5-5.0); ALKALINE PHOSPHATASE 103 U/L (32-104); BUN 19 mg/dL (8-22); CALCIUM 8.6 mg/dL (8.8-10.2); CHLORIDE 100 mmol/L (98-107); COSMO 283; GOT 17 U/L (10-30); GPT 11 U/L (10-36); MAGNESIUM 2.1 mg/dL (1.5-2.7); SODIUM 141 mmol/L (136-145); TCO2 34 mmol/L (25-35)
--- NOTE | 2016-05-05 08:11 | Diag Imaging Result Document ---
PROCEDURE NAME: CHEST-PORTABLE - 05/05/2016 PORTABLE CHEST X-RAY, 05/05/2016: COMPARISON: 05/01/2016. FINDINGS: Stable right PICC line. Heart size remains borderline enlarged. Pulmonary vascularity is normal. No infiltrates. IMPRESSION: No change from prior.
[2016-05-05] MEDS: ZOFRAN IV PRN ×3 (09:09→21:45)
[2016-05-05] MEDS: LASIX IV SCH (09:09)
[2016-05-05] MEDS: SUBOXONE 8 MG/2 MG SL SCH ×2 (09:09→21:29)
[2016-05-05] MEDS: FOLIC ACID PO SCH (09:10)
[2016-05-05] MEDS: TESSALON PO SCH ×3 (09:10→18:27)
[2016-05-05] MEDS: NICODERM PATCH TD SCH (09:10)
[2016-05-05] MEDS: ATIVAN IV PRN ×3 (09:11→21:30)
[2016-05-05] MEDS: XANAX PO SCH ×2 (10:35→20:22)
[2016-05-05] MEDS: LEVAQUIN 250 MG/D5W 50 ML IV SCH (11:38)
[2016-05-05] MEDS: LOVENOX SUBQ SCH (13:08)
--- NOTE | 2016-05-05 14:19 | PROGRESS NOTE ---
DATE: 05/03/2016 SUBJECTIVE: The patient complains of abdominal pain but otherwise has no other complaints. She is currently tolerating the TPN without any difficulty. PHYSICAL EXAMINATION: Vital Signs: Temperature 97 degrees, blood pressure 108/70, heart rate 85, respirations 16, O2 saturations 96% on room air. General: This is a young female, lying in bed, in no acute distress. Head: Normocephalic atraumatic. Heart: S1, S2. Normal. Regular rate and rhythm. Lungs: Clear to auscultation bilaterally. No wheezing. No rales. No rhonchi. Abdomen: Positive bowel sounds. Soft, nontender, nondistended. Extremities: No edema. No cyanosis. No calf tenderness. LAB: Sodium 145, potassium 4.3, chloride 107, CO2 28, BUN 11, creatinine 0.9, glucose 90, phosphorus 3.3, calcium 8.1, magnesium 1.8. ASSESSMENT AND PLAN: 1. Short-bowel syndrome. Continue on TPN and dietary supplements. 2. Pneumonitis. Improved. Continue on IV Merrem. 3. Vitamin D deficiency. Continue on vitamin D replacement. 4. Folate deficiency. Continue with folic acid replacement. 5. Abdominal wound. Continue with local wound care. 6. The multiple abdominal surgeries. Aware. 7. Anxiety disorder. Continue on scheduled Xanax. 8. Opioid dependence. Continue on Suboxone. 9. Deep vein thrombosis prophylaxis. Continue on Lovenox.
--- NOTE | 2016-05-05 17:53 | PROGRESS NOTE ---
DATE: 05/05/2016 SUBJECTIVE: Patient has no focal complaints. OBJECTIVE: Vital signs: Blood pressure 110/70, heart rate of 80, respiratory rate 18, temperature 98.2 degrees. Cardiovascular: Regular rate and rhythm. Pulmonary: Bilateral breath sounds. Diminished bases. GI: Soft, nontender, nondistended. Bowel sounds are positive. LABORATORY DATA: White count 9, hemoglobin and hematocrit 8.5 and 28, platelets of 231,000. CMP normal. PROBLEM LIST: 1. Severe protein calorie malnutrition from short-gut syndrome, malabsorption. She is currently getting TPN and fat emulsion. Plan is to do home TPN if available. 2. Pneumonia. Clinically she is improved. No fevers, no white count. Her chest x-ray really does not show significant focal infiltrate. She has been on Merrem for a week now 8 days, Levaquin so I am going to stop the Levaquin leave on Merrem and complete 10 days so another 2-3 days and could consider taking her off that as well. Discharge disposition hopefully home with TPN. We will continue to follow.
[2016-05-05] MEDS: VITAMIN D PO SCH (18:27)
[2016-05-05] MEDS: LIPOSYN 20% 250 ML IV SCH (21:29)
[2016-05-05] MEDS: TPN ELECTROLYTES 20 ML, MAGNESIUM SULFATE 5 MEQ, POTASSIUM CHLORIDE 20 MEQ, M.V.I.-12 1... IV SCH ×8 (21:29)
[2016-05-05] MEDS: AMBIEN PO SCH (21:30)
--- NOTE | 2016-05-05 21:50 | PROGRESS NOTE ---
DATE: 05/05/2016 SUBJECTIVE: The patient is in tears complaining of increased anxiety, headache and leg pain. She apparently fell while trying to go to the restroom and lacerated her right lower extremity. She describes severe joint pains, total body pains and abdominal pain. She is asking for medications for anxiety, migraine headaches and for pain control. She notes mild constipation which is causing her increased abdominal pain. She states that when she is constipated, her abdomen hurts it causes painful defecation. OBJECTIVE: General: On exam, she is anxious and trembling. She is extremely tearful. Vital signs: Her blood pressure is 119/78, pulse of 109, respirations 16, temperature of 99 degrees. HEENT: Negative for jaundice. Her oropharyngeal mucosal membranes are dry. Chest: Is clear to auscultation with normal expiratory effort. Cardiovascular: Reveals a tachycardia with a regular rhythm. Abdominal: Reveals normoactive bowel sounds. The abdomen is soft with mild diffuse tenderness with no rebound or guarding. She has a well-healed surgical incision with an open lower edge that is covered with a dressing that is clean and dry. EXTREMITIES: Bilaterally in the upper extremity are unremarkable. The right lower extremity has a laceration on the anterior thompson. Neurologic: She is alert and oriented x3. She is tearful and anxious. OBJECTIVE DATA: Remarkable for a sodium of 141, potassium 4, chloride 100, CO2 34, BUN 19, creatinine 1, with a glucose of 96. Calcium is 8.6, phosphorus is 3.5, magnesium 2.1, total bilirubin 0.4, AST 0.2, AST 17 ALT 11, alkaline phosphatase 103, total protein 5 , albumin 3.2. IMPRESSION: 1. Short-bowel syndrome. 2. Vitamin D deficiency. 3. Chronic abdominal pain. 4. Multiple vitamin and mineral deficiencies. RECOMMENDATION: 1. While the patient needs home total parenteral nutrition, we are unable to manage her in our practice based on current staffing. Therefore, I would recommend referral to a larger center such as [facility] for long-term care and gut rehabilitation. We are happy to continue to assist in her care while she is an inpatient at [facility]. 2. Continue vitamin D supplementation. 3. Continue vitamin supplementation as you are doing. 4. She would benefit from clear definition of the length of her remaining bowel and perhaps referral to a center for gut rehabilitation and specialized nutrition support. 5. I recommend MiraLAX 17 g per day. She may refuse if she has diarrhea. With short-bowel patients, it is prudent to keep their stool soft and semi-liquid to avoid abdominal distention and pain. 6. Continue Protonix 40 mg IV q.12 hours. 7. Additional recommendations to follow based on her clinical course. MTDD
--- NOTE | 2016-05-05 22:04 | Diag Imaging Result Document ---
PROCEDURE NAME: HEAD W/O CONTRAST - 05/05/2016 STUDY: CT brain without contrast. No parenchymal hemorrhage. No epidural or subdural hematoma. No subarachnoid hemorrhage. No skull fracture. No mass identified on this noncontrasted exam. No hydrocephalus. No sinus opacification. IMPRESSION: No hemorrhage. No injury. A preliminary report was given at 8:10 p.m.
[2016-05-06] MEDS: MERREM 1 GM in NS 50 ML IV SCH ×3 (00:02→18:11)
[2016-05-06] MEDS: SODIUM CHLORIDE 0.9% INJ SCH ×2 (05:19→18:31)
[2016-05-06] MEDS: PROTONIX IV SCH ×3 (05:19→18:30)
[2016-05-06] MEDS: TYLENOL PO PRN ×2 (05:19→13:29)
[2016-05-06] MEDS: ZOFRAN IV PRN ×4 (05:30→22:15)
[2016-05-06 06:08] LABS: AGAP 9; ALBUMIN 3.2 g/dL (3.5-5.0); ALKALINE PHOSPHATASE 114 U/L (32-104); BUN 15 mg/dL (8-22); CALCIUM 8.4 mg/dL (8.8-10.2); CHLORIDE 100 mmol/L (98-107); COSMO 281; GOT 20 U/L (10-30); GPT 12 U/L (10-36); MAGNESIUM 1.7 mg/dL (1.5-2.7); POTASSIUM 3.9 mmol/L (3.5-5.1); PREALBUMIN 13.2 mg/dL (20-40); SODIUM 141 mmol/L (136-145); TCO2 32 mmol/L (25-35); TOTAL BILIRUBIN 0.43 mg/dL (0.20-1.00); TOTAL PROTEIN 5.2 g/dL (6.3-8.3); TRIGLYCERIDES 178 mg/dL (35-135)
[2016-05-06] MEDS: DUONEB (A & A) INH SCH ×6 (06:38→23:15)
--- NOTE | 2016-05-06 08:02 | Diag Imaging Result Document ---
PROCEDURE NAME: LOWER LEG-RIGHT - 05/05/2016 RIGHT LOWER LEG, 4 VIEWS: COMPARISON: None. FINDINGS: Bones are intact and normally aligned. Joint spaces and soft tissues are clear. IMPRESSION: Negative exam.
[2016-05-06] MEDS: LASIX IV SCH (09:03)
[2016-05-06] MEDS: FOLIC ACID PO SCH (09:03)
[2016-05-06] MEDS: TESSALON PO SCH ×3 (09:03→22:05)
[2016-05-06] MEDS: XANAX PO SCH ×2 (09:03→22:05)
[2016-05-06] MEDS: ROBITUSSIN PO PRN ×2 (09:04→13:28)
[2016-05-06] MEDS: SUBOXONE 8 MG/2 MG SL SCH ×2 (09:04→22:05)
[2016-05-06] MEDS: ATIVAN IV PRN ×3 (09:07→22:17)
[2016-05-06] MEDS: NICODERM PATCH TD SCH (09:07)
[2016-05-06] MEDS ORDERED: ZOMIG PO ONE (10:49)
[2016-05-06] MEDS ORDERED: PREMARIN PO ONE (12:02)
--- NOTE | 2016-05-06 12:48 | PROGRESS NOTE ---
DATE: 05/06/2016 SUBJECTIVE: The patient is teary, is asking for her hormone therapy because she had a total hysterectomy. The patient does not want to go home. She wants to stay here for several more days. OBJECTIVE: Vital Signs: Blood pressure 102/76, pulse of 102, respirations 18, temperature 98.2 degrees, O2 saturation 97% in room air. General Appearance: Thin, white female in no acute distress. HEENT: Anicteric. Clear conjunctivae. Neck: Supple. No JVD. No bruit. Cardiovascular: S1 and S2. Normal rate and rhythm. No murmur, rubs, or gallops. Pulmonary: Clear to auscultation bilaterally. Gastrointestinal: Soft, nontender, nondistended. Normoactive bowel sounds. Musculoskeletal: No clubbing, cyanosis, or edema. LABORATORY: White count 9.06, hemoglobin 10.5, hematocrit 28.2, platelets of 231,000. Chemistry: Sodium 141, potassium 3.9, chloride 100, bicarb 32, BUN 15, creatinine 0.8, glucose of 87. ASSESSMENT AND PLAN: 1. A 41-year-old white female admitted to the hospital for short gut syndrome. 2. Severe protein calorie deficiency secondary to short gut syndrome and malabsorption. The patient has been getting TPN. Will plan to do TPN at home. We are going to discuss with the health care social worker. 3. Pneumonia. The patient seemed to be improving. Will complete her 10-day course of Merrem. Cultures have remained negative thus far. 4. Depression. We will start the patient on an SSRI today. 5. Hot flashes. The patient had total hysterectomy and oophorectomy. Will start her on estrogen. 6. Deep vein thrombosis prophylaxis. Patient on Lovenox. CODE STATUS: The patient is full code. MEDICATIONS, LABORATORY, AND RADIOLOGY: Reviewed.
[2016-05-06] MEDS: LOVENOX SUBQ SCH (13:29)
[2016-05-06] MEDS: CELEXA PO SCH (13:33)
--- NOTE | 2016-05-06 21:10 | PROGRESS NOTE ---
DATE: 05/06/2016 SUBJECTIVE: The patient had multiple questions regarding hospital discharge and her outpatient management. Unfortunately, our practice is not set up to manage a short-bowel patient. I have suggested that she consider pursuing treatment at [facility] either as an inpatient or as an outpatient. She is tolerating her diet and the total parenteral nutrition but continues to have diarrhea. At this time, I have no further recommendations as she has been clinically stable. She reports dysphagia, but has had a normal swallow study. She may need an outpatient EGD if symptoms persist. There is no sign of bleeding and her bowels have been regular. At this time, I have no further recommendations and will sign off. Please feel free to contact us if you have any additional questions or if there is a change in her clinical status. SHIELA
[2016-05-06] MEDS: LIPOSYN 20% 250 ML IV SCH (21:46)
[2016-05-06] MEDS: TPN ELECTROLYTES 20 ML, MAGNESIUM SULFATE 5 MEQ, POTASSIUM CHLORIDE 20 MEQ, M.V.I.-12 1... IV SCH ×8 (21:46)
[2016-05-06] MEDS: AMBIEN PO SCH (22:05)
[2016-05-07] MEDS: MERREM 1 GM in NS 50 ML IV SCH ×3 (03:50→16:23)
[2016-05-07] MEDS: DUONEB (A & A) INH SCH ×6 (05:29→23:57)
[2016-05-07] MEDS: PROTONIX IV SCH ×2 (06:45→18:01)
[2016-05-07] MEDS: SODIUM CHLORIDE 0.9% INJ SCH ×2 (06:45→18:01)
[2016-05-07 07:35] LABS: ALBUMIN 2.7 g/dL (3.5-5.0); DIRECT BILIRUBIN 0.2 mg/dL (0.00-0.20); TOTAL BILIRUBIN 0.32 mg/dL (0.20-1.00); TOTAL PROTEIN 5.1 g/dL (6.3-8.3)
[2016-05-07] MEDS: ZOFRAN IV PRN ×3 (07:36→16:13)
[2016-05-07] MEDS: ATIVAN IV PRN ×3 (07:36→22:58)
[2016-05-07] MEDS: TYLENOL PO PRN (07:36)
[2016-05-07] MEDS: TESSALON PO SCH ×3 (08:44→22:57)
[2016-05-07] MEDS: NICODERM PATCH TD SCH (08:44)
[2016-05-07] MEDS: SUBOXONE 8 MG/2 MG SL SCH ×2 (08:44→22:55)
[2016-05-07] MEDS: XANAX PO SCH ×2 (08:44→22:57)
[2016-05-07] MEDS: FOLIC ACID PO SCH (08:45)
[2016-05-07] MEDS: CELEXA PO SCH (08:45)
[2016-05-07] MEDS: PREMARIN PO SCH (08:45)
[2016-05-07] MEDS: LASIX IV SCH (08:45)
--- NOTE | 2016-05-07 12:11 | PROGRESS NOTE ---
DATE: 05/07/2016 SUBJECTIVE: The patient is complaining of having some nausea and vomiting this morning, although the nurse reputes that. OBJECTIVE: Vital Signs: Blood pressure 106/69, pulse of 104, respirations 16, temperature of 98.7 degrees, saturations of 98% on room air. General Appearance: Thin, cachectic, white female in mild distress. She is crying. HEENT: Anicteric sclerae. Clear conjunctivae. Neck: Supple. No JVD. No bruit. Cardiovascular: S1 and S2. Normal rhythm. Slightly tachycardic. Pulmonary: Clear to auscultation bilaterally. GI: Soft, nontender, nondistended. Normoactive bowel sounds. Musculoskeletal: No clubbing, cyanosis, or edema. Laboratory: Noticed. ASSESSMENT AND PLAN: This is a 41-year-old, white female admitted to the hospital for nausea and vomiting. 1. Short gut syndrome and protein deficiency. The patient is on total parenteral nutrition. Encourage oral intake. Gastroenterology was following and basically signing off. I am not sure if transferring her to a higher level of care inpatient is an option. Her main issue is not having enough bowel to absorb nutrition and has to be on total parenteral nutrition. We would need someone to manage the total parenteral nutrition as an outpatient. We will refer her to gastroenterology outpatient up in [place]. 2. Pneumonia. We will continue her Merrem at this time. It will be stopped after 10 days. 3. Depression. We started the patient on Celexa yesterday. Seems to be doing better. 4. Hot flashes. Continue her Premarin for now. 5. Deep vein thrombosis prophylaxis. Put the patient on Lovenox. 6. Code status. The patient is a full code. We will order lab tomorrow.
[2016-05-07 13:51] LABS: AGAP 11; BUN 18 mg/dL (8-22); CALCIUM 8.6 mg/dL (8.8-10.2); CHLORIDE 95 mmol/L (98-107); COSMO 296; GOT 28 U/L (10-30); MAGNESIUM 1.8 mg/dL (1.5-2.7); POTASSIUM 4.5 mmol/L (3.5-5.1); PREALBUMIN 26.7 mg/dL (20-40); SODIUM 134 mmol/L (136-145); TCO2 28 mmol/L (25-35); TRIGLYCERIDES 510 mg/dL (35-135)
[2016-05-07] MEDS: LOVENOX SUBQ SCH (14:00)
[2016-05-07] MEDS: ZOMIG PO PRN (16:14)
[2016-05-07] MEDS ORDERED: TPN ELECTROLYTES 20 ML, MAGNESIUM SULFATE 5 MEQ, POTASSIUM CHLORIDE 20 MEQ, M.V.I.-12 1... IV SCH ×7 (20:00)
[2016-05-07] MEDS: AMBIEN PO SCH (22:57)
[2016-05-08] MEDS: ZOFRAN IV PRN ×4 (02:47→18:14)
[2016-05-08] MEDS: TYLENOL PO PRN ×4 (02:47→20:52)
[2016-05-08] MEDS: ATIVAN IV PRN ×3 (02:48→20:55)
[2016-05-08] MEDS: PROTONIX IV SCH ×3 (02:50→20:56)
[2016-05-08] MEDS: MERREM 1 GM in NS 50 ML IV SCH ×3 (02:50→17:10)
[2016-05-08] MEDS: SODIUM CHLORIDE 0.9% INJ SCH (02:50)
[2016-05-08] MEDS: DUONEB (A & A) INH SCH ×6 (06:20→23:01)
[2016-05-08 06:46] LABS: MANUAL DIFF NEEDED? NO
[2016-05-08 07:00] LABS: BASO% 0.7 % (0.0-0.8); HEMATOCRIT 25.7 % (37.0-47.0); HEMOGLOBIN 7.8 g/dL (12.0-16.0); IMM GRAN# 0.06 X1000 (0.0-0.04); LYMPH% 19.2 % (20.5-51.1); MCH 31.8 PG (27-31); MCHC 30.4 g/dL (33-37); MCV 104.9 FL (81-99); MONO# 0.97 X1000 (0.11-0.59); MONO% 16.9 % (1.7-9.3); NEUT% 62.2 % (42.2-75.2); PLT 190 X1000 (130-400); RBC 2.45 XMIL (4.2-5.4)
[2016-05-08 07:22] LABS: AGAP 10; ALBUMIN 3.2 g/dL (3.5-5.0); ALKALINE PHOSPHATASE 128 U/L (32-104); BUN 20 mg/dL (8-22); CALCIUM 8.8 mg/dL (8.8-10.2); CHLORIDE 97 mmol/L (98-107); COSMO 270; GOT 22 U/L (10-30); GPT 13 U/L (10-36); POTASSIUM 4.3 mmol/L (3.5-5.1); SODIUM 134 mmol/L (136-145); TCO2 27 mmol/L (25-35); TOTAL BILIRUBIN 0.42 mg/dL (0.20-1.00); TOTAL PROTEIN 5.9 g/dL (6.3-8.3)
[2016-05-08] MEDS: SUBOXONE 8 MG/2 MG SL SCH ×2 (09:49→20:53)
[2016-05-08] MEDS: PREMARIN PO SCH (09:49)
[2016-05-08] MEDS: FOLIC ACID PO SCH (09:49)
[2016-05-08] MEDS: CELEXA PO SCH (09:49)
[2016-05-08] MEDS: XANAX PO SCH ×2 (09:49→20:54)
[2016-05-08] MEDS: LASIX IV SCH (09:49)
[2016-05-08] MEDS: TESSALON PO SCH ×3 (09:49→17:11)
[2016-05-08] MEDS: NICODERM PATCH TD SCH (09:49)
[2016-05-08 10:59] LABS: MAGNESIUM 1.6 mg/dL (1.5-2.7)
[2016-05-08] MEDS ORDERED: NS 1,000 ML IV SCH (14:30)
[2016-05-08] MEDS: LOVENOX SUBQ SCH (14:42)
--- NOTE | 2016-05-08 14:58 | PROGRESS NOTE ---
DATE: 05/08/2016 SUBJECTIVE: The patient is having a fever overnight. She denies having any vomiting but she still complains of having nausea. OBJECTIVE: Vital Signs: Blood pressure 1044/72, pulse 104, respirations 17, temperature 101.8 degrees, saturation of 95% on room air. General Appearance: Thin cachectic white female in mild distress. HEENT: Anicteric. Clear conjunctivae. Neck: Supple. No JVD. No bruit. Cardiovascular: S1, S2. Normal rate and rhythm. No murmur, rubs, or gallops. Pulmonary: Clear to auscultation bilaterally. GI: Soft, nontender, nondistended. Normoactive bowel sounds. Musculoskeletal: No clubbing, cyanosis, or edema. LABORATORY: White count 5.73, hemoglobin 7.8, hematocrit of 25.7, platelets 190 ,000. Chemistry: Sodium 134, potassium 4.3, chloride 97, bicarb 27, BUN 20, creatinine 0.9, glucose 87. Liver function tests, alkaline phosphatase of 128. ASSESSMENT/PLAN: 41-year-old admitted to the hospital for failure to thrive. 1. Protein calorie deficiency. The patient is able to eat p.o. but apparently she does not get enough nourishment from p.o. Will add Glucerna boost along with her diabetic diet. We will hold her TPN since the patient is still having the fever concerning it may be the line infection. TPN is prone to fungemia. Encourage her p.o. intake. The patient has some nausea with eating but otherwise she has no vomiting, no significant diarrhea. Again strongly encouraged the patient to eat as much as he can. We will have trouble getting the TPN if she able to eat. 2. Pneumonia. We will continue Merrem for now. Since she is still having fever we will send blood culture to make sure she does not have any evidence of yeast infection in her blood. 3. Depression. We started her on Celexa. Seemed to be doing well. No crying today, no teary. 4. Hot flashes. She doing well on Premarin. 5. Deep vein thrombosis prophylaxis. Continue Lovenox. 6. Code status. The patient full code. 7. GI has signed off on the patient and will not see the patient again as an outpatient because according to Dr. Canela's note she is not equipped to manage short-bowel syndrome patient. We are having troubled arranging her outpatient TPN without an outpatient GI. As long as the patient can eat, we will hold on TPN. If Dr. Canela feels that the patient needs to transition to a higher level of care, I highly appreciate if she recommends a specialist in her field that we can get her to follow up before signing off. Addendum: Dr. Canela called me at 6pm telling me that she had made a referral to [facility], and the patient is on a waiting list for transfer. This is the first time I have heard about an accepting since she signed off on the . Historically and presently, we have had difficulty transferring patient to a subspecialty service at a high level of care center, such as [facility], without a specialist's backup. We appreciate Dr. Canela's effort to help making the transfer. MTDD
[2016-05-08] MEDS: AMBIEN PO SCH (20:55)
[2016-05-08] MEDS ORDERED: NS 1,000 ML IV ONE (21:32)
[2016-05-09] MEDS: ZOFRAN IV PRN ×3 (03:13→16:24)
[2016-05-09] MEDS: ATIVAN IV PRN ×4 (03:13→22:28)
[2016-05-09] MEDS: DUONEB (A & A) INH SCH ×6 (03:17→23:16)
[2016-05-09] MEDS: MERREM 1 GM in NS 50 ML IV SCH ×3 (04:43→18:35)
[2016-05-09 06:23] LABS: MANUAL DIFF NEEDED? NO
[2016-05-09] MEDS: PROTONIX IV SCH ×2 (06:30→18:46)
[2016-05-09 06:32] LABS: INR 1.2; PROTIME 12.7 Seconds (9.2-11.7)
[2016-05-09 06:52] LABS: BASO% 0.3 % (0.0-0.8); HEMATOCRIT 23.5 % (37.0-47.0); IMM GRAN# 0.06 X1000 (0.0-0.04); IMM GRAN% 0.6 % (0.0-0.5); LYMPH# 1.02 X1000 (1.2-3.4); LYMPH% 10.2 % (20.5-51.1); MCH 31.3 PG (27-31); MCHC 29.8 g/dL (33-37); MCV 104.9 FL (81-99); MONO# 1.18 X1000 (0.11-0.59); MONO% 11.8 % (1.7-9.3); NEUT% 77.1 % (42.2-75.2); PLT 191 X1000 (130-400); RBC 2.24 XMIL (4.2-5.4)
[2016-05-09 06:58] LABS: AGAP 13; ALBUMIN 2.9 g/dL (3.5-5.0); ALKALINE PHOSPHATASE 120 U/L (32-104); BUN 16 mg/dL (8-22); CALCIUM 7.2 mg/dL (8.8-10.2); CHLORIDE 107 mmol/L (98-107); COSMO 283; GOT 26 U/L (10-30); GPT 13 U/L (10-36); POTASSIUM 3.8 mmol/L (3.5-5.1); PREALBUMIN 9.8 mg/dL (20-40); SODIUM 142 mmol/L (136-145); TCO2 22 mmol/L (25-35); TOTAL BILIRUBIN 0.44 mg/dL (0.20-1.00); TOTAL PROTEIN 5.2 g/dL (6.3-8.3)
[2016-05-09] MEDS: NICODERM PATCH TD SCH (08:14)
[2016-05-09] MEDS: LASIX IV SCH (08:14)
[2016-05-09] MEDS: SUBOXONE 8 MG/2 MG SL SCH ×2 (08:14→22:26)
[2016-05-09] MEDS ORDERED: MYLICON DROPS (DOSE) MISC ONE (09:20)
[2016-05-09] MEDS: CELEXA PO SCH (10:20)
[2016-05-09] MEDS: FOLIC ACID PO SCH (10:20)
[2016-05-09] MEDS: TESSALON PO SCH ×3 (10:20→17:41)
[2016-05-09] MEDS: PREMARIN PO SCH (10:20)
[2016-05-09] MEDS: XANAX PO SCH ×2 (10:21→22:26)
--- NOTE | 2016-05-09 10:34 | OPERATIVE NOTE ---
PROCEDURE DATE: 05/09/2016 DATE OF PROCEDURE: 05/09/2016. REFERRING PHYSICIAN: Mayelin Phan M.D. PRIMARY CARE PHYSICIAN: Patricia Vargas M.D. PRIMARY SURGEON: Yoandy Cisneros M.D. INDICATIONS FOR PROCEDURE: 1. Nausea with vomiting. 2. Dysphagia. 3. Food impaction. 4. Epigastric pain. 5. Heartburn. 6. Diarrhea. 7. Anemia. 8. Patient has a known history of short bowel syndrome. PROCEDURES PERFORMED: 1. Esophagogastroduodenoscopy with control of bleeding. 2. Esophagogastroduodenoscopy with biopsy. CONSENT: Informed consent was obtained from the patient prior to the procedure. The risks, benefits, and alternatives were discussed with the patient and her . MEDICATION: The patient received monitored anesthesia care. PERFORMING PHYSICIAN: Keyona Canela M.D. ASSISTANTS: 1. Lisbeth Bass RN. 2. Chepe Peter RN. 3. Marco Rodríguez CRNA. 4. Stanley Proctor M.D. (anesthesia). COMPLICATIONS: There were no complications. ESTIMATED BLOOD LOSS: 1-2 mL. SPECIMENS REMOVED: Duodenal biopsy. FINDINGS: After sedation was achieved, the upper endoscope was inserted to the second portion of the duodenum. The hypopharynx appeared endoscopically normal. In the tubular esophagus, beginning in the mid esophagus and extending to the GE junction, there were multiple whitish plaques consistent with Ailyn esophagitis. The GE junction was measured at 40 cm. The lumen was widely patent with no evidence of Goode's esophagus, esophageal varices or stricture. There was a hiatal hernia that spanned from 40-45 cm. In the gastric lumen, there was a large phytobezoar in the fundus. We were able to advance the scope around the bezoar into the antrum where there were multiple actively bleeding AVMs as well as a few nonbleeding AVMs. Twelve actively bleeding AVMs were cauterized using the black wire cautery. The pylorus was mildly inflamed, but patent. In the duodenum, the mucosa appeared endoscopically normal. Due to the patient's history of diarrhea with multiple nutritional deficiencies, random duodenal biopsies were taken. After the intervention was performed, the scope was retracted into the gastric lumen. On retroflexed view, we are unable to fully visualize the fundus. There was no evidence of gastric varices. Further evaluation of the fundus was limited due to the presence of the fundal bezoar. After the exam was complete, the lumen was decompressed and the scope was removed without incident. IMPRESSION: 1. Ailyn esophagitis. 2. Hiatal hernia. 3. Erosive gastritis. 4. Large gastric fundal bezoar. 5. Actively bleeding arteriovenous malformation, status post hemostasis with black wire cautery. 6. Normal-appearing duodenum. RECOMMENDATIONS: 1. Await endoscopic biopsy results. 2. Begin octreotide drip for the next 3-5 days. 3. Monitor serial hemoglobin and hematocrits. 4. Transfuse as needed. 5. If the patient's hemoglobin continues to drop, I would consider performing a colonoscopy. 6. We anticipate the patient will be transferred to [facility] in the next 2-3 days. If her hemoglobin continues to drop, then it may be prudent to consider performing a colonoscopy at [facility]. 7. Because she had evidence of Ailyn esophagitis, I will begin Diflucan 200 mg today followed by 100 mg daily for 20 days for a total of 21 days of therapy. 8. We will check an HIV to determine her risk for Ailyn esophagitis. 9. Because of the fundal bezoar, I recommend a dedicated gastric emptying study to help us to identify her actual emptying time. This will help with designing a gastroparesis diet for this patient. 10. In light of the presence of the bezoar, I will ask the team to resume her TPN and continue with clear to full liquids. If the patient resists, she may have a GI soft diet but her intake has been inadequate to meet her daily calorie needs due to early satiety. 11. The patient should be transferred to [facility] when a bed is available. MTDD
[2016-05-09] MEDS ORDERED: EXTENSION SET 32 IN 4522 ONE (10:40)
[2016-05-09] MEDS ORDERED: NS 250 ML ONE (10:40)
[2016-05-09] MEDS ORDERED: ANESTHESIA PB SET 88 IN 5742 ONE (10:40)
[2016-05-09] MEDS ORDERED: DIFLUCAN 200 MG/NS 100 ML IV ONE ×2 (11:30→19:04)
--- NOTE | 2016-05-09 12:15 | PROGRESS NOTE ---
DATE: 05/09/2016 SUBJECTIVE: The patient just got back from the EGD and she is crying, complaining of her nerves. Her was in the room. All questions were invited and entertained. OBJECTIVE: Vital Signs: Blood pressure 101/63, pulse of 117, respirations 20, temperature 102.6 degrees, saturation of 92% in room air. General Appearance: Thin, cachectic, white female in moderate distress due to emotional distress. HEENT: Anicteric. Clear conjunctivae. Neck: Supple. No JVD. No bruit. Cardiovascular: S1 and S2. Normal rate and rhythm. No murmur, rubs, or gallops. Pulmonary: Clear to auscultation bilaterally. Gastrointestinal: Soft, nontender, nondistended. Normoactive bowel sounds. Musculoskeletal: No clubbing, cyanosis, or edema. LABORATORY: White count 10.02, hemoglobin 7.0, hematocrit of 23.5, platelets 191,000. Chemistries: Sodium 142, potassium 3.8, chloride 107, bicarbonate 22, BUN 16, creatinine 0.7, glucose of 74, albumin 2.9. ASSESSMENT AND PLAN: This is a 41-year-old white female admitted to the hospital for failure to thrive. 1. Protein calorie deficiency, partly due to her short-bowel syndrome, partly due to her inability to eat adequately due to pain with swallowing. She had an EGD today that showed some esophageal candidiasis and the presence of a bezoar in her stomach. GI recommended to put the patient on octreotide drips for the next 3-5 days. We will continue to monitor her hemoglobin. There is no mention of active bleeding, per GI note. The patient is pending transfer to [facility] for higher level of care from the GI standpoint. 2. Anxiety and depression. We will continue her Xanax as scheduled and p.r.n. Ativan in conjunction with her Celexa. 3. Esophageal candidiasis. Will start the patient on Diflucan today and for the next 3 weeks also. 4. Deep vein thrombosis prophylaxis. We will hold the patient's Lovenox for now, since her hemoglobin and hematocrit are dropping.
--- NOTE | 2016-05-09 13:04 | CONSULTATION ---
DATE OF CONSULTATION: 05/08/2016 REFERRING PHYSICIAN: Mane Anna M.D. PRIMARY CARE PHYSICIAN: Patricia Vargas M.D. PRIMARY SURGEON: Dr. Tarah Cisneros M.D. INDICATIONS FOR CONSULTATION: 1. To assist with directing long-term care. 2. Dysphagia. 3. New iron deficiency anemia. 4. New fever. HISTORY OF PRESENT ILLNESS: The patient is a severely malnourished 41-year-old , white female, who is admitted on 04/27/2016. Please see our consultation from 04/28/2016. In summary, she is a patient who underwent surgery for the treatment of ovarian cancer at age 23 years of age. 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 She presented to our hospital for evaluation of nausea with vomiting and abdominal pain. She was found to have multiple vitamin and nutritional deficiencies. She was profoundly malnourished with severe diarrhea upon admission. She also has had multiple food impactions, one of which required the Heimlich maneuver on 04/28/2016. She subsequently underwent a swallow study which was normal. There was no evidence of aspiration and she had no difficulty with any of the food consistencies provided. During this admission, she has been on both TPN and oral diet. She continues to have significant diarrhea, although she had 1 episode of severe pain and constipation, which is resolved. She continues to have abdominal pain and drainage from the distal most portion of her surgical incision from her last intestinal revision several months ago. Since we last saw the patient on 05/06/2016, she has developed a fever and has had a drop in her hemoglobin. Also, her stool studies have returned from [facility] in are positive for elevated chloride, as well as an osmotic gap. REVIEW OF SYSTEMS: Remarkable for nausea, dysphagia, and abdominal pain, as well as diarrhea. PAST MEDICAL HISTORY: Listed in the detailed consult on 04/28/2016. PAST SURGICAL HISTORY: Listed in the detailed consult on 04/28/2016. SOCIAL HISTORY: Listed in the detailed consult on 04/28/2016. HOME MEDICATION: Listed in the detailed consult on 04/28/2016. MEDICATION ALLERGIES: Listed in the detailed consult on 04/28/2016. MEDICATION ALLERGIES: And home. MEDICATIONS ARE: Listed in the detailed consult 03/10/20192016. PHYSICAL EXAMINATION: General Appearance: On exam, she is a white female, in no acute distress. Vital Signs: Her blood pressure is 102/66, pulse of 100, respirations 15, T- max of 101.8 degrees. General Appearance: In general, she is anxious, but in no acute distress. HEENT: Negative for jaundice. Her oropharyngeal mucosa membranes are moist. Pulmonary Examination : Lungs are clear to auscultation with normal expiratory effort. Cardiovascular Examination: Is remarkable for resting tachycardia. There are no murmurs, gallops, or rubs. Abdominal Examination: Reveals normoactive bowel sounds. The abdomen is soft with mild diffuse tenderness, but no rebound or guarding. She has a dry dressing over the lower abdominal incision. She has multiple well-healed surgical scars. Extremities: Bilaterally are remarkable for a right thompson laceration from a fall during this admission. There is no cyanosis, clubbing, or edema. OBJECTIVE DATA: Remarkable for a hemoglobin of 7.8 with hematocrit of 25.7, and a white count of 5.73. Her MCV is 104.9, and her MCH is 31.8. She has 190,000 platelets. Her sodium is 134, potassium 4.3, chloride 97, CO2 27, BUN 20, creatinine 0.9, with a glucose of 87. Calcium is 8.8, phosphorus 3.7, magnesium 1.6, total bilirubin 0.42, direct bilirubin 0.20, AST 22, ALT 13, alkaline phosphatase 128, total protein 5.9, albumin 3.2. Her triglycerides were 152. IMPRESSION: 1. Short-bowel syndrome. 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 3. Dysphagia with recent food impaction, but normal swallow study. 4. Chronic diarrhea. 5. Protein calorie malnutrition. 6. Multiple electrolyte derangements on admission. 7. Multiple vitamin deficiencies on admission. 8. Iron-deficiency anemia, with a new drop in hemoglobin. 9. Fever. 10. Pneumonia. 11. Abnormal stool studies with elevated chloride and an anion gap. 12. History of hepatitis C with sustained viral response. 13. Probable irritable bowel syndrome. 14. Macrocytosis. RECOMMENDATION: 1. During this admission, our service met with the hospitalist that was managing the patient at the time of admission and on multiple occasions since to discuss the patient' s care. She has a very complex disease and requires a level of care that is not available in [place]. Specifically, she needs evaluation by GI and GI surgery, given her short bowel syndrome, recent bowel reconstruction, and ongoing symptoms. She will most likely need gut rehab with possible TPN long-term. However, she will need a formal evaluation and the assistance of the nutrition support team to help with meeting the stringent criteria that Medicaid has for home TPN. Because of this, I have recommended in the chart and discussed with Dr. Mayelin Phan, as well as Dr. England, that the patient should be transferred to [facility] for ongoing care. In addition, these recommendations have been documented in the chart for the last several days. I spoke with Dr. Matheus Salazar at [facility], who has accepted the patient for transfer pending a bed. She is currently listed on the wait list at [facility] for hospital bed. I will ask that the hospitalist service make available all of her radiologic studies on a disk prior to transport, as well as having a copy of her medical record in place. Our hope is that she will be transferred over the weekend or possibly Thursday. 2. In the meantime, I will schedule the patient to undergo an esophagogastroduodenoscopy for further evaluation of the acute drop in hemoglobin. Because of the food impactions, as well as dysphagia, she may require an esophageal dilation. I will also plan to biopsy the small bowel depending on our findings. 3. Continue Protonix 40 mg IV q.12 hours. 4. Monitor serial hemoglobins and hematocrits. Please transfuse if she continues to drop. 5. Continue Zofran as needed. 6. She will need to complete the course of antibiotics for her pneumonia. Please note, because of her short bowel syndrome and her severe malnutrition, she is at risk for progression to sepsis. She will need to eat or have enteral feedings despite the TPN to minimize gut bacterial translocation. I would have a low threshold for broadening her antibiotic coverage if there is a change in her clinical status. At this time, she appears to be hemodynamically stable. Because of her fever, I will resume her IV fluids in order to home maintain her hydration status. 7. Although previously suggested, I do not see the stool studies for H. pylori antigen. I will reorder those tests. 8. Additional recommendations to follow based on her esophagogastroduodenoscopy findings. [facility]
[2016-05-09] MEDS ORDERED: SANDOSTATIN IV ONE ×2 (13:20→19:04)
[2016-05-09] MEDS ORDERED: DIPRIVAN 1% ONE (14:05)
[2016-05-09] MEDS ORDERED: FENTANYL ONE (14:12)
[2016-05-09] MEDS: NS 1,000 ML IV SCH ×2 (14:59→17:44)
[2016-05-09] MEDS: SANDOSTATIN 500 MICROGM in D5W 100 ML IV SCH ×2 (14:59→23:35)
[2016-05-09 16:35] LABS: HEMATOCRIT 27.2 % (37.0-47.0); HEMOGLOBIN 8.3 g/dL (12.0-16.0)
[2016-05-09] MEDS: ZOMIG PO PRN (17:41)
[2016-05-09] MEDS ORDERED: D10W 1,000 ML IV PRN (18:00)
[2016-05-09] MEDS: TPN ELECTROLYTES 20 ML, MAGNESIUM SULFATE 5 MEQ, POTASSIUM CHLORIDE 20 MEQ, SODIUM PHOS... IV SCH ×8 (18:46)
[2016-05-09] MEDS: LIPOSYN 20% 250 ML IV SCH (18:46)
[2016-05-09] MEDS ORDERED: SANDOSTATIN 500 MICROGM in D5W 100 ML IV SCH (19:04)
[2016-05-09 20:06] LABS: BASO% 0.2 % (0.0-0.8); HEMATOCRIT 23.1 % (37.0-47.0); IMM GRAN# 0.09 X1000 (0.0-0.04); IMM GRAN% 0.8 % (0.0-0.5); LYMPH# 0.48 X1000 (1.2-3.4); LYMPH% 4.1 % (20.5-51.1); MANUAL DIFF NEEDED? YES; MCHC 30.3 g/dL (33-37); MCV 105.5 FL (81-99); MONO# 0.54 X1000 (0.11-0.59); MONO% 4.6 % (1.7-9.3); MPV 10.5 FL (7.4-10.4); NEUT% 90.3 % (42.2-75.2); PLT 217 X1000 (130-400); RBC 2.19 XMIL (4.2-5.4)
[2016-05-09 20:42] LABS: CALCIUM 7.6 mg/dL (8.8-10.2); MAGNESIUM 1.3 mg/dL (1.5-2.7); POTASSIUM 3.1 mmol/L (3.5-5.1)
[2016-05-09 21:25] LABS: LYMPHS 2 % (21-51); MONO 2 % (1-9)
[2016-05-09 21:26] LABS: HYPOCHROM 1+
[2016-05-09] MEDS: AMBIEN PO SCH (22:26)
[2016-05-10] MEDS: TYLENOL PO PRN ×3 (00:19→17:13)
[2016-05-10] MEDS: DUONEB (A & A) INH SCH ×6 (03:02→23:30)
[2016-05-10] MEDS: ATIVAN IV PRN ×4 (04:13→23:08)
[2016-05-10] MEDS: MERREM 1 GM in NS 50 ML IV SCH ×3 (04:13→21:35)
[2016-05-10] MEDS: NS 1,000 ML IV SCH ×3 (05:40→23:58)
[2016-05-10] MEDS: PROTONIX IV SCH ×2 (06:05→23:09)
[2016-05-10] MEDS: SODIUM CHLORIDE 0.9% INJ SCH (06:06)
[2016-05-10 06:10] LABS: MANUAL DIFF NEEDED? NO
[2016-05-10 06:32] LABS: AGAP 13; ALBUMIN 2.5 g/dL (3.5-5.0); ALKALINE PHOSPHATASE 94 U/L (32-104); BUN 15 mg/dL (8-22); CALCIUM 7.3 mg/dL (8.8-10.2); CHLORIDE 101 mmol/L (98-107); COSMO 270; GOT 32 U/L (10-30); GPT 15 U/L (10-36); POTASSIUM 3.3 mmol/L (3.5-5.1); SODIUM 134 mmol/L (136-145); TCO2 20 mmol/L (25-35); TOTAL BILIRUBIN 0.48 mg/dL (0.20-1.00); TOTAL PROTEIN 4.7 g/dL (6.3-8.3)
[2016-05-10 06:34] LABS: BASO% 0.3 % (0.0-0.8); HEMATOCRIT 21.4 % (37.0-47.0); HEMOGLOBIN 6.5 g/dL (12.0-16.0); IMM GRAN# 0.06 X1000 (0.0-0.04); IMM GRAN% 0.8 % (0.0-0.5); LYMPH# 0.81 X1000 (1.2-3.4); LYMPH% 10.8 % (20.5-51.1); MAGNESIUM 1.4 mg/dL (1.5-2.7); MCH 31.6 PG (27-31); MCHC 30.4 g/dL (33-37); MCV 103.9 FL (81-99); MONO# 0.66 X1000 (0.11-0.59); MONO% 8.8 % (1.7-9.3); MPV 10.9 FL (7.4-10.4); NEUT% 79.3 % (42.2-75.2); PLT 200 X1000 (130-400); RBC 2.06 XMIL (4.2-5.4)
[2016-05-10] MEDS ORDERED: NS 500 ML ONE (09:56)
[2016-05-10] MEDS: TESSALON PO SCH ×3 (09:59→23:07)
[2016-05-10] MEDS: SUBOXONE 8 MG/2 MG SL SCH ×2 (09:59→23:08)
[2016-05-10] MEDS: PREMARIN PO SCH (09:59)
[2016-05-10] MEDS: NICODERM PATCH TD SCH (09:59)
[2016-05-10] MEDS: XANAX PO SCH ×2 (09:59→23:07)
[2016-05-10] MEDS: FOLIC ACID PO SCH (10:00)
[2016-05-10] MEDS ORDERED: DIFLUCAN 100 MG/NS 50 ML IV SCH (10:00)
[2016-05-10] MEDS ORDERED: POTASSIUM CHLORIDE 40 MEQ/SWI 100 ML IV ONE (10:00)
[2016-05-10] MEDS: CELEXA PO SCH (10:00)
[2016-05-10] MEDS ORDERED: MAGNESIUM SULFATE 1 GM/D5W 100 ML IV ONE (10:00)
[2016-05-10] MEDS: SANDOSTATIN 500 MICROGM in D5W 100 ML IV SCH (10:16)
[2016-05-10] MEDS: ZOFRAN IV PRN ×3 (11:21→23:08)
--- NOTE | 2016-05-10 14:24 | PROGRESS NOTE ---
DATE: 05/10/2016 SUBJECTIVE: The patient is feeling better. Still has a fever this morning but no chills. No nausea. No vomiting this morning. OBJECTIVE: Vital Signs: Blood pressure 85/50, pulse of 84, respirations 21, temperature 98.8 degrees, saturation 94% on room air. General Appearance: Cachectic white female in mild distress. HEENT: Anicteric. Clear conjunctivae. Neck supple. No JVD. No bruit. Cardiovascular: S1, S2. Normal rate and rhythm. No murmur, rubs, or gallops. Pulmonary: Clear to auscultation bilaterally. GI: Soft, nontender, nondistended. Normoactive bowel sounds. Musculoskeletal: No clubbing, cyanosis, or edema. LABORATORY: White count 7.44, hemoglobin of 6.3, hematocrit 11.4, platelets of 200,000. Chemistry: Sodium 134, potassium 3.3, chloride 101, bicarb 20. BUN 15, creatinine 1.0, glucose of 122. ASSESSMENT AND PLAN: This is a 41-year-old with short bowel syndrome admitted for failure to thrive. 1. Short bowel syndrome. Continue to have trouble tolerating food. She had an esophagogastroduodenoscopy done on Thursday that showed she has active bleeding that were cauterized. Octreotide drip was recommended by the sap hana developer, but the sap hana developer stopped the drip yesterday. We will continue Protonix. 2. Esophageal candidiasis. Will continue Diflucan. 3. Malnutrition. Will continue total parenteral nutrition and encourage p.o. intake. The patient is scheduled for a gastric emptying on Thursday. 4. Hot flash. We will continue Premarin. 5. Deep vein thrombosis prophylaxis plus we will place the patient on sequential compression devices, hold Lovenox since the patient is having bleeding according to the sap hana developer. DISPOSITION: According to GI, the patient is on a waiting list for her to be transferred to [facility] for a higher level of care for her short bowel syndrome.
[2016-05-10] MEDS: LASIX IV SCH (16:19)
[2016-05-10] MEDS: DIFLUCAN 100 MG/NS 50 ML IV SCH (16:19)
[2016-05-10] MEDS ORDERED: LOVENOX SUBQ SCH (19:00)
--- NOTE | 2016-05-10 20:08 | PROGRESS NOTE ---
DATE: 05/10/2016 This is a progress note for Ms. Bolaños. I am covering for Dr. Canela. Patient was resting comfortably. In fact, she was somnolent, did wake up on calling her name, however she appeared to be drowsy. She had some fever this morning, spiked up to 101 degrees Fahrenheit which has resolved now. She has been able to feel better now, however she was requesting more pain medication. She is still on antibiotic and on TPN and had her transfer to [facility] still pending. No beds available this morning either. Temperature now is 98.3, pulse 88 per minute, breathing 21, blood pressure 82/49. The patient is thin built, cachectic, lying in bed. Otherwise physical findings stable. Labs reviewed which showed WBC 7.48, hemoglobin 6.5, which was 7.0 the other day. Hematocrit 21.4. MCV 103.9 with platelets of 200,000. Sodium 134, potassium 3.3, chloride 101, bicarb 29, BUN 15. Creatinine 1.0. Glucose 122, magnesium 1.4. IMPRESSION: Short-bowel syndrome with multiple medical problems. She has dysphagia, hypomagnesemia, iron-deficiency anemia, and failure to thrive. Overall she has been stable since admission. She had an EGD done by Dr. Canela yesterday and was found to have no visible signs of bleeding. She did have evidence of Ailyn esophagitis and erosive gastritis. There was a large bezoar in her stomach. There were few AVMs that were cauterized. At this point, no new suggestions except to continue current antibiotics including Diflucan, continue TPN, and continue supportive care while her transfer to [facility] is pending. We will continue to follow.
[2016-05-10] MEDS: TPN ELECTROLYTES 20 ML, MAGNESIUM SULFATE 5 MEQ, POTASSIUM CHLORIDE 20 MEQ, SODIUM PHOS... IV SCH ×8 (23:06)
[2016-05-10] MEDS: AMBIEN PO SCH (23:08)
[2016-05-10] MEDS: LIPOSYN 20% 250 ML IV SCH (23:09)
[2016-05-11] MEDS: TYLENOL PO PRN ×2 (01:34→10:04)
[2016-05-11] MEDS: DUONEB (A & A) INH SCH ×6 (02:39→23:31)
[2016-05-11] MEDS: MERREM 1 GM in NS 50 ML IV SCH ×2 (03:17→10:30)
[2016-05-11] MEDS: PROTONIX IV SCH ×2 (06:05→22:24)
[2016-05-11] MEDS: SANDOSTATIN 500 MICROGM in D5W 100 ML IV SCH ×2 (06:29→22:29)
[2016-05-11 06:32] LABS: MANUAL DIFF NEEDED? NO
[2016-05-11 06:41] LABS: BASO% 0.3 % (0.0-0.8); HEMATOCRIT 25.8 % (37.0-47.0); HEMOGLOBIN 8.1 g/dL (12.0-16.0); IMM GRAN# 0.05 X1000 (0.0-0.04); IMM GRAN% 0.7 % (0.0-0.5); LYMPH# 0.81 X1000 (1.2-3.4); LYMPH% 11.2 % (20.5-51.1); MCH 30.9 PG (27-31); MCHC 31.4 g/dL (33-37); MCV 98.5 FL (81-99); MONO# 0.82 X1000 (0.11-0.59); MONO% 11.3 % (1.7-9.3); MPV 11.3 FL (7.4-10.4); NEUT% 76.5 % (42.2-75.2); PLT 206 X1000 (130-400); RBC 2.62 XMIL (4.2-5.4)
[2016-05-11 06:57] LABS: CALCIUM 7.9 mg/dL (8.8-10.2); MAGNESIUM 1.7 mg/dL (1.5-2.7); POTASSIUM 3.3 mmol/L (3.5-5.1)
[2016-05-11 07:59] LABS: HIV ANTIBODY SCREEN SEE COMMENTS (())
[2016-05-11] MEDS: SUBOXONE 8 MG/2 MG SL SCH ×2 (09:46→22:29)
[2016-05-11] MEDS: XANAX PO SCH ×2 (09:47→22:23)
[2016-05-11] MEDS: PREMARIN PO SCH (09:47)
[2016-05-11] MEDS: CELEXA PO SCH (09:47)
[2016-05-11] MEDS: FOLIC ACID PO SCH (09:47)
[2016-05-11] MEDS: TESSALON PO SCH ×3 (09:47→22:23)
[2016-05-11] MEDS: NICODERM PATCH TD SCH (09:48)
[2016-05-11] MEDS: LASIX IV SCH (09:48)
[2016-05-11] MEDS: ZOFRAN IV PRN ×2 (09:48→22:24)
[2016-05-11] MEDS: DIFLUCAN 100 MG/NS 50 ML IV SCH (11:48)
[2016-05-11] MEDS: ATIVAN IV PRN (11:49)
--- NOTE | 2016-05-11 14:24 | PROGRESS NOTE ---
DATE: 05/11/2016 SUBJECTIVE: The patient is doing about the same. She appears to be comfortable. She put up a fist with the staff for not giving her Ativan and Xanax at the same time. OBJECTIVE: Vital Signs: Blood pressure 116/78, pulse of 104, respirations 22, temperature 98.6 degrees, T-max of 103 degrees. General Appearance: Thin white female in no acute distress. HEENT: Anicteric. Clear conjunctivae. Neck: Supple. No JVD. No bruit. Cardiovascular: S1, S2. Normal rate and rhythm. No murmur, rubs or gallops. Pulmonary: Clear to auscultation bilaterally. GI: Soft, tender to palpation diffusely. Musculoskeletal: No clubbing, cyanosis, or edema. Neuro: The patient is in a euthymic mood. No suicidal or homicidal ideation. LABORATORY: Were reviewed. Hemoglobin and hematocrit is stable and improving. Potassium 3.3. ASSESSMENT AND PLAN: A 41-year-old admitted to the hospital for failure to thrive. 1. Failure to thrive. The patient was started on TPN. She started having fever for the past several days. Her culture is positive for yeast. Will change Diflucan over to micafungin and will put in 2 large IVs and PICC line. Will consult ID in the morning. 2. Hypokalemia. Will continue to replete her potassium. 3. Short-bowel syndrome. Dr. Hilton alexander. According to her notes the patient is waiting for transfer to at [facility]. 4. Hot flashes status post hysterectomy with oophorectomy. Will start the patient on Premarin. 5. Depression and anxiety. We started the patient on Celexa. She seems to be doing relatively well. Will continue Xanax and p.r.n. Ativan. CODE STATUS: The patient is a full code.
--- NOTE | 2016-05-11 15:39 | PROGRESS NOTE ---
DATE: 05/11/2016 Dr. Allen Worthington is on-call for Dr. Canela this week. SUBJECTIVE: The patient is concerned that she is not getting the Ativan dosage that she usually gets at home. She is very drowsy and can hardly hold her head up when I am talking with her. She denies any current complaints at this time. OBJECTIVE: Vital signs: Temperature 98.6 degrees, pulse 104, respirations 22, blood pressure 116/78. LABORATORY: Hematology. White count 7.25, hemoglobin 8.1, hematocrit 25.8, MCV 98.5, platelets 206,000. Chemistry. Sodium 134, potassium 3.3, chloride 102, CO2 19, BUN 17, creatinine 1.1, glucose 127. ASSESSMENT AND PLAN: Short-bowel syndrome with multiple medical problems. She had an EGD done by Dr. Canela on May 09 with no evidence of bleeding. She did have Ailyn esophagitis and erosive gastritis and a large bezoar in the stomach. Also noted arterial venous malformations that were cauterized. Continue current management. Continue antibiotics and supportive care. She has a transfer pending to [facility] and they are waiting on room. Dr. 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 Dictated by LOTUS Mo for Allen Worhtington MD
--- NOTE | 2016-05-11 17:43 | CONSULTATION ---
DATE OF CONSULTATION: 05/11/2016 CONCLUSION: The patient has a fungemia. I agree with Dr. Adams that it originates from the patient's PICC. Another possibility would be that it would originate from the urinary tract. RECOMMENDATIONS: I agree with the decision to remove the patient's PICC. I have written for the patient's TPN to be tapered over a 3 hour period also. I have also requested that a urinalysis with culture if indicated to be obtained. DISCUSSION: The patient was admitted to the hospital. She has had nausea, vomiting and diarrhea for 3 days. She was very weak. She also had fever. She states that she had some shortness of breath and a nonproductive cough. She also was complaining of abdominal pain. She did not complain of dysuria or flank pain. There is no urinalysis or urine culture on the chart. One of 2 blood cultures is growing yeast. The patient's CBC shows a white count of 7250, hemoglobin 8.1 and platelet count 206,000. The test for HIV antibody is negative. One of 2 blood cultures is growing yeast as mentioned above. The patient's creatinine is 1.1. The GFR is 55. The patient's liver function studies are not elevated. The patient's albumin is low at 2.5. The patient had a CT scan of the head. It was negative. Chest x-ray was clear. PAST MEDICAL HISTORY/REVIEW OF SYSTEMS: It was difficult for me to obtain a review of systems from the patient. She was complaining of pain and at times was lethargic. The history that I am obtaining is partly from the patient and mainly from a review of the data in the computer. Patient's past medical history is positive for panic disorder, hypertension, noncompliance and short-bowel syndrome and irritable bowel syndrome. PAST SURGICAL HISTORY: Positive for hysterectomy, colon resection resulting in short bowel syndrome, a cholecystectomy and bilateral breast implants. ALLERGIES: The patient has an allergy to penicillin. The patient's allergy to penicillin is swelling. HOME MEDICATIONS: Include Zofran, Xanax, Lexapro, omeprazole, Ambien, Lasix and Suboxone. SOCIAL HISTORY: The patient smokes cigarettes. She denies alcohol consumption or illicit drug use. FAMILY HISTORY: Positive for coronary artery disease. PHYSICAL EXAMINATION: General: This is a chronically ill-appearing young female who is complaining of some abdominal pain. Head, eyes, ears, nose, and throat: No drainage noted from the nose or ears. There were no white patches in the mouth. Neck: No meningismus. Thorax: Increased AP diameter of the chest. Lungs: Clear to auscultation. Cardiovascular: Regular heart rate. Abdomen: Soft but tender. Bowel sounds were present. Neurologic: The patient was lethargic. She could move her extremities but was weak. There was no tremor. I was unable to obtain a good history from her. Therefore, I could not evaluate her memory. Thank you for the consult.
[2016-05-11] MEDS: MYCAMINE 100 MG in NS 100 ML IV SCH (17:44)
[2016-05-11] MEDS: AMBIEN PO SCH (22:23)
[2016-05-11] MEDS: SODIUM CHLORIDE 0.9% INJ SCH (22:24)
[2016-05-11] MEDS: NS 1,000 ML IV SCH (22:40)
[2016-05-12] MEDS: SANDOSTATIN 500 MICROGM in D5W 100 ML IV SCH ×4 (01:21→12:30)
[2016-05-12] MEDS: ATIVAN IV PRN ×3 (02:35→22:19)
[2016-05-12] MEDS: TYLENOL PO PRN (02:35)
[2016-05-12] MEDS: ZOMIG PO PRN (02:54)
[2016-05-12] MEDS: NS 1,000 ML IV SCH ×3 (04:35→22:19)
[2016-05-12] MEDS: DUONEB (A & A) INH SCH ×4 (04:47→15:22)
[2016-05-12] MEDS: PROTONIX IV SCH ×2 (06:32→18:07)
[2016-05-12] MEDS: SODIUM CHLORIDE 0.9% INJ SCH ×2 (06:32→18:07)
[2016-05-12 06:56] LABS: MANUAL DIFF NEEDED? NO
[2016-05-12 07:15] LABS: BASO% 0.3 % (0.0-0.8); EOS# 0.01 X1000 (0.0-0.7); EOS% 0.2 % (0.0-10.0); HEMATOCRIT 26.1 % (37.0-47.0); HEMOGLOBIN 8.2 g/dL (12.0-16.0); IMM GRAN# 0.03 X1000 (0.0-0.04); IMM GRAN% 0.5 % (0.0-0.5); LYMPH# 1.14 X1000 (1.2-3.4); LYMPH% 19.4 % (20.5-51.1); MCH 30.7 PG (27-31); MCHC 31.4 g/dL (33-37); MCV 97.8 FL (81-99); MONO# 0.79 X1000 (0.11-0.59); MONO% 13.4 % (1.7-9.3); MPV 11.6 FL (7.4-10.4); NEUT% 66.2 % (42.2-75.2); PLT 228 X1000 (130-400); RBC 2.67 XMIL (4.2-5.4)
[2016-05-12 07:24] LABS: CALCIUM 8.2 mg/dL (8.8-10.2); MAGNESIUM 1.7 mg/dL (1.5-2.7); POTASSIUM 3.1 mmol/L (3.5-5.1)
[2016-05-12] MEDS ORDERED: NS IV SCH (09:00)
[2016-05-12] MEDS ORDERED: MYCAMINE IV SCH (09:00)
--- NOTE | 2016-05-12 09:19 | PROGRESS NOTE ---
DATE: 05/12/2016 PRESENT ILLNESS: The patient has a fungemia with Ailyn albicans. MEDICATIONS: The patient currently is on micafungin. PHYSICAL EXAM: See dictation done at 10:56 AM. LAB AND X-RAY: The patient's CBC today shows a white count of 5890, hemoglobin 8.2, and platelet count 228,000. The patient's blood culture has been identified as Ailyn albicans. Creatinine is 1.2. The GFR is 50. ASSESSMENT AND PLAN: My plan now is to stop micafungin and start the patient on fluconazole. The patient's comorbidities include the fact that she has short bowel syndrome in which she requires intravenous nutrients and hydration. My plan is to discontinue micafungin and instead start the patient on fluconazole. The patient's comorbidity is that she has short bowel syndrome. She is malnourished. She also smokes cigarettes. I should mention that the patient's urinalysis and urine culture are not back yet. Most likely, the fungemia arose from the peripherally inserted central catheter but urinary tract would be a possibility also. SHIELA
--- NOTE | 2016-05-12 11:47 | PROGRESS NOTE ---
DATE: 05/12/2016 CONTINUATION: I am dictating the physical exam on the patient. Earlier I dictated all the other part of the progress note. PHYSICAL EXAMINATION: Temperature is 97.8 degrees, pulse 76, respirations 16, blood pressure 121/88.General: This is a somewhat ill-appearing, young female. She is in no acute distress. Lungs: Clear to auscultation. Cardiovascular: Regular heart rate. Chest: There is a large dressing over the left breast. The dressing has serosanguineous drainage on it. The dressings were intact. Abdomen: Soft and nontender. Extremities: The PICC site is not erythematous or swollen.
[2016-05-12] MEDS: CELEXA PO SCH (11:55)
[2016-05-12] MEDS: LASIX IV SCH (11:55)
[2016-05-12] MEDS: PREMARIN PO SCH (11:55)
[2016-05-12] MEDS: TESSALON PO SCH ×3 (11:55→18:15)
[2016-05-12] MEDS: NICODERM PATCH TD SCH (11:55)
[2016-05-12] MEDS: FOLIC ACID PO SCH (11:56)
--- NOTE | 2016-05-12 12:01 | Diag Imaging Result Document ---
PROCEDURE NAME: GASTRIC EMPTYING - 05/12/2016 GASTRIC EMPTYING STUDY: FINDINGS: The patient ingested 580 microcuries of technetium-99m sulfur colloid in eggs, and the linear fit half time of gastric emptying is 518.86 minutes which is well above the normal range. IMPRESSION: Delayed gastric emptying.
[2016-05-12] MEDS ORDERED: ERYTHROMYCIN 250 MG in NS 150 ML IV SCH (12:15)
[2016-05-12] MEDS: XANAX PO SCH ×2 (12:39→20:49)
[2016-05-12] MEDS: ZOFRAN IV PRN ×2 (12:39→20:49)
[2016-05-12] MEDS: SUBOXONE 8 MG/2 MG SL SCH ×2 (13:05→20:49)
[2016-05-12] MEDS ORDERED: MAGNESIUM SULFATE 2 GM/S.W.I. 50 ML IV ONE (15:39)
[2016-05-12] MEDS ORDERED: POTASSIUM CHLORIDE 60 MEQ in NS 500 ML IV ONE (16:00)
[2016-05-12] MEDS: VITAMIN D PO SCH (18:15)
--- NOTE | 2016-05-12 18:24 | PROGRESS NOTE ---
DATE: 05/12/2016 SUBJECTIVE: No acute events noted overnight. The patient is afebrile. OBJECTIVE: Vital Signs: Temperature 98.8 degrees, blood pressure 109/73. Heart rate 91, O2 saturations 97% on room air. General: This is a middle-aged female, lying in bed, in no acute distress. Head: Normocephalic, atraumatic. Heart: S1, S2. Normal. Regular rate and rhythm. Lungs: Clear to auscultation bilaterally. No wheezes, no rales. No rhonchi. Abdomen: Positive bowel sounds. Soft, nontender, nondistended. Extremities: No edema. No cyanosis. No calf tenderness. Neurologic: The patient is alert and oriented x3. LABORATORY STUDIES: White blood cell count 5.8, hemoglobin 8.2, hematocrit 26, platelets 228,000. Sodium 139, potassium 3.1, chloride 107, CO2 19, BUN 19, creatinine 1.2, glucose 103, magnesium 1.7, phos 3. ASSESSMENT AND PLAN: 1. 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 Continue with the current antifungal as recommended by Dr. Parrish. 2. Short bowel syndrome. Aware. 3. Gastroparesis. The patient has been started on erythromycin by Dr. Canela. We will continue to monitor closely. 4. Opioid dependence. Continue on Suboxone. 5. Anxiety disorder. Continue on Xanax. 6. Vitamin D deficiency. Continue vitamin D replacement. 7. Deep vein thrombosis prophylaxis. Continue on Lovenox.
[2016-05-12] MEDS: MYCAMINE 100 MG in NS 100 ML IV SCH (19:41)
[2016-05-12] MEDS: AMBIEN PO SCH (20:49)
[2016-05-12 22:19] VITALS: BP 102/71
--- NOTE | 2016-05-24 16:14 | DISCHARGE SUMMARY ---
ADMISSION DATE: 04/27/2016 DISCHARGE DATE: 05/12/2016 FINAL DISCHARGE DIAGNOSES: 1. 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 2. Short bowel syndrome. 3. Pneumonitis. 4. Gastroparesis. 5. Opioid dependence. 6. Anxiety disorder. 7. Vitamin D deficiency. 8. Severe protein calorie malnutrition. 9. Iron-deficiency anemia. 10. Severe electrolyte imbalance. 11. History of multiple abdominal surgeries. 12. Abdominal wound. 13. GI bleed secondary to bleeding AVMs CONSULTATIONS REQUESTED DURING THIS HOSPITAL STAY: 1. General Surgery consultation with Dr. Diego. 2. GI consultation with Dr. Canela. 3. Infectious Disease consultation with Dr. Jerrell Parrish. PROCEDURES PERFORMED DURING THIS HOSPITAL STAY: 1. PICC line insertion. 2. EGD with biopsy and control of bleeding. HOSPITAL COURSE: Ms. Bolaños is a 41-year-old female with a history of: 1. Opioid dependence on Suboxone. 2. Short bowel syndrome. 3. History of multiple abdominal surgeries. Who presented to the emergency room with persistent nausea, vomiting and diarrhea. The patient was admitted to the hospitalist's service. At which time, a CT of the chest, abdomen, and pelvis was done. It revealed a pneumonitis as well as fatty infiltration of the liver and moderate distention of the small bowel and colon. As a result of these findings, GI and General Surgery were consulted. The patient was also noted to have a severe protein calorie malnutrition, as well as multiple electrolyte imbalances as a result of her short bowel syndrome. The patient was initially treated with Clinimix, IV antibiotics, IV fluid hydration, and her electrolytes were replaced. The colon. The patient was being followed by a surgeon in [place]. However, she was fired from that surgeon's practice due to poor behavior in the office and missed appointments. Ultimately, a PICC line was placed and TPN was initiated. The patient also had a modified barium swallow done because there was concern about dysphagia. However, the patient passed the swallow evaluation. Several days into the hospitalization, it was noted the patient's hemoglobin and hematocrit were dropping. The patient was then taken for an EGD. At which time , the patient was noted to have Ailyn esophagitis, erosive gastritis, and actively bleeding AVM that was cauterized. She also found to have a large gastric fundal bezoar. The patient was then noted to be febrile blood cultures were obtained, which grew out Ailyn albicans. Infectious Disease was consulted and it was recommended that the patient PICC line be removed, and it was removed. The patient was then started on micafungin. Due to the complex medical condition that the patient had, Dr. Canela made arrangements for the patient to be transferred to the [facility] for further care. The patient was ultimately transferred to the [facility] on May. MTDD
== END 2016-05-12 22:41 | disposition short-term general hospital (02) | DRG 391 ==
LOC: ED 19:48 → 4N 04-27 00:29 → 3N 05-06 14:53
PROVIDERS: ATTEND Internal Medicine
PROC: 3E0336Z Introduction of Nutritional Substance into Peripheral Vein, Percutaneous Approach (ICD-10-PCS; 2016-04-27)
PROC: 02HV33Z Insertion of Infusion Device into Superior Vena Cava, Percutaneous Approach (ICD-10-PCS; 2016-05-01)
PROC: 0DB98ZX Excision of Duodenum, Via Natural or Artificial Opening Endoscopic, Diagnostic (ICD-10-PCS; 2016-05-09)
PROC: 0W3P8ZZ Control Bleeding in Gastrointestinal Tract, Via Natural or Artificial Opening Endoscopic (ICD-10-PCS; principal; 2016-05-09 09:10)
DX: K91.2 Postsurgical malabsorption, not elsewhere classified (principal); J18.9 Pneumonia, unspecified organism; E43 Unspecified severe protein-calorie malnutrition; R64 Cachexia; B37.81 Candidal esophagitis; B49 Unspecified mycosis; K55.21 Angiodysplasia of colon with hemorrhage; E87.2 Acidosis; F11.20 Opioid dependence, uncomplicated; N39.0 Urinary tract infection, site not specified; Z68.1 Body mass index [BMI] 19.9 or less, adult; T18.2XXA Foreign body in stomach, initial encounter; E83.39 Other disorders of phosphorus metabolism; E83.51 Hypocalcemia; R13.10 Dysphagia, unspecified; T17.928A Food in respiratory tract, part unspecified causing other injury, initial encounter; I10 Essential (primary) hypertension; F41.0 Panic disorder [episodic paroxysmal anxiety]; E87.6 Hypokalemia; F17.210 Nicotine dependence, cigarettes, uncomplicated; R74.8 Abnormal levels of other serum enzymes; E53.8 Deficiency of other specified B group vitamins; J44.9 Chronic obstructive pulmonary disease, unspecified; G89.4 Chronic pain syndrome; D50.9 Iron deficiency anemia, unspecified; K43.9 Ventral hernia without obstruction or gangrene; F42.9 Obsessive-compulsive disorder, unspecified; F32.89 Other specified depressive episodes; R06.1 Stridor; E87.5 Hyperkalemia; S81.811A Laceration without foreign body, right lower leg, initial encounter; W19.XXXA Unspecified fall, initial encounter; K59.00 Constipation, unspecified; E89.41 Symptomatic postprocedural ovarian failure; D75.89 Other specified diseases of blood and blood-forming organs; R62.7 Adult failure to thrive; K29.60 Other gastritis without bleeding; K58.9 Irritable bowel syndrome, unspecified; K44.9 Diaphragmatic hernia without obstruction or gangrene; K31.84 Gastroparesis; Z82.49 Family history of ischemic heart disease and other diseases of the circulatory system; Z85.43 Personal history of malignant neoplasm of ovary; T81.89XD Other complications of procedures, not elsewhere classified, subsequent encounter; I25.2 Old myocardial infarction; Z86.718 Personal history of other venous thrombosis and embolism; Z79.899 Other long term (current) drug therapy; Z91.11 Patient's noncompliance with dietary regimen; Z86.19 Personal history of other infectious and parasitic diseases
CPT/HCPCS: 36569; 70450; 71010; 71020; 71250; 74022; 74176; 74230; 76700; 78264; 80048; 80053; 80074; 80076; 81001; 82270; 82306; 82438; 82465; 82550; 82607; 82728; 82746; 82948; 83516; 83540; 83550; 83605; 83735; 84100; 84132; 84134; 84302; 84443; 84450; 84478; 84484; 84999; 85014; 85018; 85025; 85610; 86701; 86850; 86900; 86901; 86920; 87040; 87045; 87046; 87070; 87077; 87177; 87324; 87338; 87522; 88305; 88312; 88313; 89055; 93005; 93010; 94640; 94761; 96365; 96366; 96367; 96375; 96376; A9541; C9113; G0480; J0610; J1335; J1450; J1650; J1940; J2060; J2185; J2248; J2270; J2354; J2405; J3010; J3475; J3480; J7030; J7040; J7050; J7060; P9016; 80320; 80324; 80329; 80345; 80346; 80349; 80353; 80358; 80361; 80365; 83992; 92611-GN; P9047; S0164

== ENCOUNTER 2016-09-16 18:23 | Inpatient (IN) ==
[2016-09-16] MEDS ORDERED: SODIUM CHLORIDE 0.9% IV PRN (19:18)
[2016-09-16] MEDS ORDERED: NS 1,000 ML IV ONE (19:30)
[2016-09-16 19:38] LABS: MANUAL DIFF NEEDED? NO
[2016-09-16 19:45] LABS: BASO% 0.2 % (0.0-0.8); EOS# 0.13 X1000 (0.0-0.7); EOS% 1.5 % (0.0-10.0); HEMATOCRIT 29.4 % (37.0-47.0); HEMOGLOBIN 9.4 g/dL (12.0-16.0); LYMPH# 1.78 X1000 (1.2-3.4); LYMPH% 20.5 % (20.5-51.1); MCH 32.3 PG (27-31); MONO# 0.82 X1000 (0.11-0.59); MONO% 9.5 % (1.7-9.3); MPV 9.1 FL (7.4-10.4); NEUT% 68.3 % (42.2-75.2); PLT 230 X1000 (130-400); RBC 2.91 XMIL (4.2-5.4)
[2016-09-16 19:55] LABS: INR 1.23; PROTIME 13.1 Seconds (9.2-11.7)
[2016-09-16 20:00] LABS: ALBUMIN 2.3 g/dL (3.5-5.0); CALCIUM 7.9 mg/dL (8.8-10.2); MAGNESIUM 1.4 mg/dL (1.5-2.7); POTASSIUM 3.9 mmol/L (3.5-5.1); TOTAL BILIRUBIN 0.39 mg/dL (0.20-1.00); TOTAL PROTEIN 5.2 g/dL (6.3-8.3)
[2016-09-16] MEDS ORDERED: DUONEB (A & A) INH ONE (20:02)
[2016-09-16] MEDS: XANAX PO SCH (20:21)
[2016-09-16] MEDS: ZOFRAN IV PRN (20:21)
[2016-09-16] MEDS: NEXIUM IV SCH (20:21)
[2016-09-16] MEDS ORDERED: CLINIMIX E 4.25%-5% SOLUTION 1,000 ML IV SCH (20:30)
[2016-09-16] MEDS ORDERED: DULCOLAX PO ONE (20:45)
[2016-09-16] MEDS ORDERED: MIRALAX PO ONE ×2 (20:45→21:30)
[2016-09-16] MEDS ORDERED: LEVAQUIN 500 MG/D5W 500 MG/100 ML IVPB IV SCH (21:00)
[2016-09-16 21:04] LABS: RETIC% 1.39 % (0.8-2.1); RETIC-HE 33.6 PG (28.2-36.6)
--- NOTE | 2016-09-16 21:05 | HISTORY AND PHYSICAL ---
PRIMARY CARE PHYSICIAN: Dr. Canela REASON FOR ADMISSION: Rectal bleeding for 1 month. HISTORY OF PRESENT ILLNESS: Ms. Adeola Bolaños is a 41-year-old lady with a past medical history of short bowel syndrome, irritable bowel syndrome. She comes in today complaining of a 1 month history of worsening rectal bleeding, especially over the last few days. She went to Dr. Canela's office for her routine follow up and complained of her symptoms and had a digital exam and Dr. Canela noted some blood on the tip of her glove and referred her to the hospital for a working diagnosis of GI bleed versus colitis. The patient says she has had no less than 3-4 episodes of rectal bleeding over the last 3 days. She says prior to this she has only had intermittent bleeding for the last 1 month. She has a longstanding history of low chronic abdominal pain which has become constant, stabbing and cramping in nature. Does not radiate anywhere and has been associated with 2 days' history of progressive abdominal distention. She admits to having nausea and vomiting for the last 2 days. She vomited about 10 times a day but no coffee grounds or bleeding. She denies any aggravating or relieving factors regarding her abdominal pain. Also complains of chest pain which is tight and heavy, intermittent for the last 1 week. No specific aggravating or relieving factors with this pain. Lasts maybe a few minutes at most. However, has a complaint of long-standing intermittent shortness of breath which has gotten worse with exertion over the last 1 week along with a cough productive of yellowish sputum. She also complains of 2-3 days history of progressive intermittent fever with chills. REVIEW OF SYSTEMS: She has had a 20 pound weight loss over the last 1 month. Appetite has diminished. No night sweats. Fourteen review is negative. Positive findings per HPI. No rash or neurological symptoms. ALLERGIES: Penicillin and IV dye. FAMILY HISTORY: Negative for any inflammatory bowel disease. Positive for lung cancer and heart disease. No diabetes. SOCIAL HISTORY: Smokes 1 pack a day. No alcohol or illicit drug use. PAST SURGICAL HISTORY: She had hysterectomy, colon surgeon, cholecystectomy, and 2 reconstructive small bowel surgeries. The first 1 was done after having an iatrogenic small bowel perforation. This was done while trying to remove some tumor from her abdomen. Other past medical history includes ovarian and uterine cancer for which she had a hysterectomy and asthma. LAB WORK: At time of this dictation, her laboratory work included CBC, CMP, stool studies, and CT scan were pending. We will follow these as they unravel. White count is 8,000, hemoglobin and hematocrit are 9 and 29, MCV 101, platelets 230,000. PTT is normal, INR is 1.2 , PT is 13 9. PHYSICAL EXAMINATION: VITAL SIGNS: Blood pressure 109/70, heart rate 70, respirations 20, temperature 97.7 degrees. GENERAL: She is a thin, chronically ill, woman who appears older than stated age. She is in moderate distress from her pain. She is alert and oriented to person, place, and time with sad affect and depressed mood. HEENT: Head is normocephalic, atraumatic. Eyes: PERRLA. EOMs are intact. Not pallor. ENT: Oropharyngeal exam is grossly normal. NECK: Supple. No JVD or carotid bruit. No thyromegaly. CHEST: Clear to auscultation. Good air entry in both lung nguyen. CARDIOVASCULAR: First and second heart sounds heard. No gallops, murmurs, rubs. Rhythm is regular. ABDOMEN: Slightly distended in the lower half of her abdomen. It is soft to touch but diffusely tender, more in the lower half of her abdomen. Questionable rebound is noted. No masses are appreciated. Bowel sounds are hyperactive. She has what appears be a stoma just beneath her umbilicus and surrounding by extensive scarring, draining out serous liquid. EXTREMITIES: Pulses distally intact with symmetrical pulses, palpable. They are relatively weak. No edema, clubbing, cyanosis. NEUROLOGIC: No focal deficits appreciated. No tremors. SKIN: Grossly intact other than the aforementioned scarring around the periumbilical. MUSCULOSKELETAL: Grossly normal, although there is some degree of mild to moderate muscular atrophy in his extremities. ASSESSMENT: 1. Gastrointestinal bleed, probably from lower GI in the etiology. Primary etiology yet to be determined, IBD versus colitis, either infectious or noninfectious etiology. Dr. Canela will see the patient in the a.m. and modify treatment based on the CT scan she has ordered. I have taken the liberty of empiric treatment of antibiotics for now. Stool studies have been ordered and pending. Treat the patient symptomatically for nausea, vomiting , and for pain. Empiric PPIs have been ordered also. 2. Asthma, probable exacerbation per patient. Will start patient on breathing treatments and give patient low-dose steroids if this continues tomorrow. 3. Tobacco use. Counselled patient against smoking tobacco and put her on a NicoDerm patch. 4. Microcytic anemia. Anemia workup in progress. 5. Chronic malnutrition from chronic diarrhea. Will await final labs to classify patient's degree of malnutrition. I have ordered some trace elements which I believe patient may be lacking and may need to be replaced. Need to consider PPN for this patient and I will also order Clinimix at a stop gap measure and depending on the degree of her malnutrition may need to consult dietitian for possible PPN alternative. 6. Deep vein thrombosis prophylaxis will be done using SCDs as she is in a prothrombotic state even though she is bleeding. I have also ordered a troponin due to the fact that the patient has a very strong family history of heart disease, although her history does not convince me otherwise, but I think it would be prudent to rule this since this has been ongoing intermittently with shortness of breath. cc: Agustin Calle MD MTDD
[2016-09-16] MEDS: DILAUDID IV PRN ×2 (21:07→23:51)
[2016-09-16] MEDS: FLAGYL 500 MG/NS 500 MG/100 ML IVPB IV SCH (21:08)
[2016-09-16 21:18] LABS: MAGNESIUM 1.4 mg/dL (1.5-2.7)
[2016-09-16 21:37] LABS: FERRITIN 51 ng/mL (13-150)
[2016-09-16] MEDS ORDERED: MAGNESIUM SULFATE 2 GM/S.W.I. 2 GM/50 ML IVPB IV ONE (21:44)
[2016-09-16] MEDS ORDERED: AMBIEN PO SCH (22:00)
[2016-09-16] MEDS: COMPAZINE IV PRN (22:16)
[2016-09-16] MEDS ORDERED: NICODERM PATCH TD ONE (23:24)
[2016-09-16] MEDS ORDERED: NS 1,000 ML IV SCH (23:30)
[2016-09-16] MEDS ORDERED: DUONEB (A & A) INH SCH (23:30)
[2016-09-16] MEDS: DULCOLAX PO SCH (23:56)
[2016-09-17] MEDS: FLAGYL 500 MG/NS 500 MG/100 ML IVPB IV SCH ×3 (02:03→14:09)
[2016-09-17] MEDS: DILAUDID IV PRN ×4 (02:50→14:10)
[2016-09-17] MEDS ORDERED: PNEUMOVAX 23 IM ONE (03:02)
[2016-09-17 03:54] LABS: URINE CULTURE NEEDED? NO; URINE MICRO REVIEW NEEDED? NO; URINE SOURCE CLEAN CATCH
[2016-09-17 04:27] LABS: BILIRUBIN URINE NEGATIVE (NEGATIVE); BLOOD URINE NEGATIVE (NEGATIVE); COLOR STRAW; GLUCOSE URINE NEGATIVE (NEGATIVE); LEUKOCYTES URINE NEGATIVE (NEGATIVE); NITRITE URINE NEGATIVE (NEGATIVE); PH URINE 6.5; PROTEIN URINE NEGATIVE (NEGATIVE); SP GRAVITY URINE 1.002; TURBIDITY URINE CLEAR (CLEAR); UROBILINOGEN URINE NORMAL (NORMAL)
[2016-09-17 04:28] LABS: UR EPITHELIAL CELLS <10 /HPF (<10); URINE BACTERIA NEGATIVE /HPF; URINE RBC <10 /HPF (<10); URINE WBC <10 /HPF (<10)
[2016-09-17] MEDS: COMPAZINE IV PRN (05:11)
[2016-09-17] MEDS: NEXIUM IV SCH ×2 (05:12→07:33)
[2016-09-17] MEDS ORDERED: ROBINUL ONE (07:51)
[2016-09-17] MEDS ORDERED: XYLOCAINE-MPF 2% ONE (07:51)
[2016-09-17] MEDS ORDERED: DIPRIVAN 1% ONE (07:51)
[2016-09-17] MEDS ORDERED: CELEXA PO SCH (09:00)
[2016-09-17] MEDS ORDERED: FOLIC ACID PO SCH (09:00)
[2016-09-17] MEDS ORDERED: NICODERM PATCH TD SCH (09:00)
[2016-09-17] MEDS ORDERED: PHENERGAN PO SCH (09:00)
[2016-09-17] MEDS: XANAX PO SCH (09:34)
[2016-09-17] MEDS: DULCOLAX PO SCH (09:35)
[2016-09-17 11:11] VITALS: BP 111/82
--- NOTE | 2016-09-17 12:52 | CONSULTATION ---
DATE OF CONSULTATION: 09/17/2016 PRIMARY CARE PROVIDER: Adilene Gann MD REFERRING PHYSICIAN: Tim Malloy MD INDICATION FOR CONSULTATION: 1. Rectal bleeding for 1 month. 2. Diarrhea. HISTORY OF PRESENT ILLNESS: The patient is a 41-year-old white female who has been followed on previous admissions. She has a longstanding history of polysubstance abuse and medical noncompliance. Last admission in May she was discharged from the practice. However, she is now being followed by a new physician who asked us to once again see the patient. We agreed and she presented to the office yesterday for evaluation of rectal bleeding and diarrhea for 1 month. In clinic she had blood on the tip of the glove during a digital exam. She was admitted to the hospital with plans to obtain a CT scan last night and perform EGD, colonoscopy today. Unfortunately, she is allergic to contrast and the CT scan could not be done. This morning she complains of nausea with vomiting, abdominal pain, diarrhea, persistent blood in the stool, abdominal bloating and nausea and failure to thrive. However, despite my clear instructions in clinic last night, she was eating soup at the time that they came to pick her up for her procedure. This has happened on multiple occasions during her previous admission delaying her care and increasing her risk for adverse complication. Clinically, she reports diffuse abdominal pain and 3-4 episodes of rectal bleeding. She also reports watery diarrhea. She has short bowel syndrome due to mesenteric ischemia following ovarian cancer resection. She continues to lose weight and states that she has lost 20 pounds over the last month. PAST MEDICAL HISTORY: 1. Myocardial infarction August 2015. 2. Hypertension. 3. Asthma. 4. DVT in the right upper extremity in 2015. 5. Iron deficiency anemia. 6. Obsessive-compulsive disorder. 7. Paranoia with depression. 8. Irritable bowel syndrome. 9. Short bowel syndrome. 10. Mesenteric ischemia, chronic. 11. Ovarian cancer. 12. Polysubstance abuse. 13. Valvular heart disease. 14. Congestive heart failure. 15. Hypertension. 16. Migraine headaches. PAST SURGICAL HISTORY: 1. Total abdominal hysterectomy. 2. Oophorectomy. 3. Partial colon resection. 4. Small bowel resection. 5. Bowel reconstruction x2. 6. Adhesiolysis. 7. Cholecystectomy. SOCIAL HISTORY: Remarkable in that the patient smoked 1-2 packs of cigarettes per day for 25 years. She has used marijuana, opioids and benzodiazepines in the past. MEDICATION ALLERGIES: Penicillin. HOME MEDICATIONS: 1. Ambien. 2. Imitrex. 3. Phenergan. 4. MiraLAX as needed for constipation. 5. Zofran. 6. Omeprazole. 7. Lasix. 8. 9. Suboxone. 10. Xanax. REVIEW OF SYSTEMS: Remarkable for the information as noted above. In addition, she reports intermittent dysphagia. Her GI concerns include. 1. Rectal bleeding. 2. Diarrhea. 3. Nausea with vomiting. 4. Abdominal pain. 5. Malabsorption secondary to postsurgery. 6. Persistent draining enterocutaneous fistula. 7. Known history of gastroparesis. 8. Nutritional marasmus. PHYSICAL EXAM: General: She is an ill-appearing white female in no acute distress. Vital signs: Her blood pressure is 109/72, pulse 64, respirations 16, temperature of 98.3 degrees. HEENT: Negative for jaundice. Her conjunctivae are pale. Oropharyngeal mucosal membranes unremarkable. Pulmonary: Lungs are clear to auscultation with normal respiratory effort. Cardiovascular: She has regular rate and rhythm. No murmurs, gallops, or rubs. Abdomen: Reveals normoactive bowel sounds. The abdomen is soft with mild diffuse tenderness in the draining enterocutaneous fistula. Extremities: Bilaterally are remarkable for muscle wasting (the exam was performed at the time of admission). OBJECTIVE DATA: Remarkable for labs from 09/16/2016. Her hemoglobin is 9.4 with hematocrit of 29.4 and a white count of 8.67. She has 230,000 platelets. Her PT is 13.1 with an INR of 1.13. Sodium is 143, potassium 3.9, chloride 112, CO2 20, BUN 13, creatinine 1.1 with a glucose of 87. Calcium is 8.9, magnesium 1.4, phosphorus 3.8, total bilirubin 0.39, AST 52, ALT 29, alkaline phosphatase 198 with a total protein of 5.2 and albumin of 2.3. Her B12 is normal at 592. Her folate is low at 7.2 and her magnesium is low at 1.4. Her total iron is normal at 54. IMPRESSION: 1. Blood in the stool. 2. Nausea with vomiting. 3. Abdominal pain. 4. Known short-bowel syndrome. 5. Hypomagnesemia. 6. Folic acid deficiency. 7. Nutritional marasmus. RECOMMENDATION: 1. The patient was eating soup and drinking clear liquids when we came to transport her to the endoscopy suite for her endoscopic procedures. This has happened multiple times on previous admission. Therefore, her procedure has been canceled. 2. The patient has been requesting pain medicines through the night. I suspect that this admission may be compromised by her noncompliance as well as her use of narcotic pain medications. From our perspective, her hemoglobin is stable and she is appropriate for outpatient management in light of her repeated noncompliance. I recommend that she be discharged back to her primary care physician for followup. We will be available for the next 30 days for life-threatening emergencies only. The patient will be forwarded a letter instructing her to find a new brokerage purchase and sale clerk as we do not feel that we can appropriately care for this patient. 3. She has hypomagnesemia and folate deficiency which will need to be corrected. 4. She does have diarrhea and therefore it is reasonable to continue a 10 day course of antibiotics for presumed colitis and/or bacterial overgrowth as she has enterocolitis. 5. She should be placed on a short bowel diet including small frequent meals over the course of the day. 6. She has gastroparesis and would benefit from the gastroparesis diet. We arranged followup for her at [facility] in the gastroparesis clinic. However, she missed her followup. It is reasonable to consider reevaluation at [facility] as she has a complicated GI surgical history as well as a persistent enterocutaneous fistula. 7. We will sign off at this time. cc: Tim Malloy MD
[2016-09-17] MEDS: ZOFRAN IV PRN (14:10)
[2016-09-17] MEDS ORDERED: MAG-OX PO SCH (21:00)
--- NOTE | 2016-09-18 06:40 | DISCHARGE SUMMARY ---
ADMISSION DATE: 09/16/2016 DISCHARGE DATE: 09/17/2016 CONSULTATIONS: Dr. Keyona Canela with gastroenterology. PERTINENT PROCEDURES: None. DISCHARGE DIAGNOSES: 1. Gastrointestinal bleed, possibly secondary from lower gastrointestinal etiology. Primary etiology yet to be determined. The patient was set up for esophagogastroduodenoscopy and colonoscopy. However, she was noncompliant with prep. Dr. Caneal saw the patient this morning. She was eating. States that she can be discharged and follow up as outpatient. 2. Asthma, probable exacerbation per the patient. She was started on breathing treatments and given low dose steroids. Improved. 3. Tobacco use and abuse. The patient was counseled against smoking cessation. 4. Microcytic anemia. Aware. 5. Chronic malnutrition from chronic diarrhea. Patient will need to follow up with a cork pressing machine operator. HOSPITAL COURSE: Ms. Bolaños is a 41-year-old female with a past medical history of short bowel syndrome and irritable bowel syndrome, coming in complaining of a 1 month history of worsening rectal bleeding, especially over the last few days. She went to Dr. Canela's office for her routine followup and complained of her symptoms. Had a digital exam where Dr. Canela noted some blood on the tip of her glove and referred her to the hospital for a working diagnosis of GI bleed versus colitis. The patient says that she had no less than 3-4 episodes of rectal bleeding over the last 3 days. She says prior to this, she only had intermittent bleeding for the past month. She has a longstanding history of low chronic abdominal pain which has become constant, stabbing, and cramping in nature. It does not radiate anywhere. It has been associated with a 2 day history of progressive abdominal distention. She admits to having nausea and vomiting the last 2 days. She vomited 10 times a day but no coffee-grounds or bleeding. She denies any aggravating or relieving factors regarding her abdominal pain. She complained of chest pain which was tight and heavy, intermittent for 1 week. No specific aggravating or relieving factors with this pain. It lasts maybe a few minutes at the most. Also complained of longstanding intermittent shortness of breath that had gotten worse with exertion over 1 week with a productive cough with yellowish sputum. Complained of a 2-3 day history of progressive intermittent fever and chills. The patient was admitted for a possible GI bleed of unknown etiology, yet to be determined IBD versus colitis, either infectious or noninfectious. Dr. Canela was consulted. She was set up for an EGD and colonoscopy in the a.m. However, she was noncompliant with bowel regimen. When Dr. Canela saw her this morning, she was eating. The procedures have been canceled and per Dr. Canela, she can be treated as an outpatient. The patient is being discharged back home today where she will follow up outpatient with Dr. Canela. VITAL SIGNS: Temperature is 98.3 degrees, heart rate 64, respirations 16, blood pressure 109/72, O2 is 98% on room air. DISCHARGE MEDICINES: Will be as per Dr. Malloy. DISCHARGE DIET: Will be GI soft, advance as tolerated. FOLLOWUP: The patient is being discharged home with self care. She will need to follow up with Dr. Canela for her EGD and colonoscopy. The patient can return to the ED for any worsening of symptoms. DISCHARGE TIME: 30 minutes. Dictated by LOTUS Doyle for Tim Malloy MD cc: MD Adilene Oliveira MD
[2016-09-18] MEDS ORDERED: LEVAQUIN PO SCH (09:00)
== END 2016-09-17 15:48 | disposition home or self-care (01) ==
LOC: 4N 18:23
PROVIDERS: ATTEND Internal Medicine

== ENCOUNTER 2016-12-16 03:33 | Inpatient (IN) ==
[2016-12-16] MEDS ORDERED: MORPHINE IV ONE ×2 (03:48→04:36)
[2016-12-16] MEDS ORDERED: NS 1,000 ML IV ONE (03:48)
[2016-12-16] MEDS ORDERED: ZOFRAN IV ONE (03:48)
[2016-12-16] MEDS ORDERED: MORPHINE ONE (04:00)
[2016-12-16 04:07] LABS: MANUAL DIFF NEEDED? NO
[2016-12-16 04:14] LABS: BASO% 0.3 % (0.0-0.8); EOS# 0.12 X1000 (0.0-0.7); HEMATOCRIT 31.3 % (37.0-47.0); HEMOGLOBIN 10.4 g/dL (12.0-16.0); IMM GRAN# 0.03 X1000 (0.0-0.04); IMM GRAN% 0.3 % (0.0-0.5); LYMPH# 3.23 X1000 (1.2-3.4); MCHC 33.2 g/dL (33-37); MCV 87.2 FL (81-99); MONO# 1.33 X1000 (0.11-0.59); MONO% 11.1 % (1.7-9.3); MPV 11.7 FL (7.4-10.4); NEUT% 60.3 % (42.2-75.2); PLT 232 X1000 (130-400); RBC 3.59 XMIL (4.2-5.4)
[2016-12-16 04:16] LABS: URINE CULTURE NEEDED? NO; URINE SOURCE CLEAN CATCH
[2016-12-16 04:19] LABS: BILIRUBIN URINE NEGATIVE (NEGATIVE); BLOOD URINE NEGATIVE (NEGATIVE); COLOR YELLOW; GLUCOSE URINE NEGATIVE (NEGATIVE); LEUKOCYTES URINE NEGATIVE (NEGATIVE); NITRITE URINE NEGATIVE (NEGATIVE); PROTEIN URINE NEGATIVE (NEGATIVE); SP GRAVITY URINE 1.011; TURBIDITY URINE HAZY (CLEAR); UROBILINOGEN URINE NORMAL (NORMAL)
[2016-12-16 04:20] LABS: URINE MICRO REVIEW NEEDED? YES
[2016-12-16 04:27] LABS: UR EPITHELIAL CELLS <10 /HPF (<10); URINE BACTERIA NEGATIVE /HPF; URINE RBC <10 /HPF (<10); URINE WBC <10 /HPF (<10)
[2016-12-16 04:28] LABS: AGAP 12; ALBUMIN 2.4 g/dL (3.5-5.0); ALKALINE PHOSPHATASE 312 U/L (32-104); BUN 7 mg/dL (8-22); CALCIUM 8.1 mg/dL (8.8-10.2); CHLORIDE 107 mmol/L (98-107); COSMO 284; GOT 32 U/L (10-30); GPT 24 U/L (10-36); LIPASE 13 U/L (13-60); POTASSIUM 2.8 mmol/L (3.5-5.1); SODIUM 144 mmol/L (136-145); TCO2 25 mmol/L (25-35); TOTAL BILIRUBIN 0.71 mg/dL (0.20-1.00); TOTAL PROTEIN 6.1 g/dL (6.3-8.3)
[2016-12-16] MEDS ORDERED: SODIUM CHLORIDE 0.9% INJ ONE (04:37)
[2016-12-16] MEDS ORDERED: PHENERGAN IV ONE (04:37)
[2016-12-16 04:51] LABS: UR AMPHETAMINES QUAL NONE DETECTED (NONE DETECT); UR BARBITUATES QUAL NONE DETECTED (NONE DETECT); UR BENZODIAZEPIN QUAL PRESUMPTIVE POSITIVE (NONE DETECT); UR CANNABINOIDS QUAL NONE DETECTED (NONE DETECT); UR COCAINE QUAL NONE DETECTED (NONE DETECT); UR METHADONE QUAL NONE DETECTED (NONE DETECT); UR OPIATES QUAL NONE DETECTED (NONE DETECT); UR OXYCODONE QUAL NONE DETECTED (NONE DETECT); UR PCP QUAL NONE DETECTED (NONE DETECT)
[2016-12-16] MEDS ORDERED: OFIRMEV 1000 MG/ISOTONIC SOLN 1,000 MG/100 ML BOTTLE IV ONE (05:33)
[2016-12-16 06:57] LABS: URINE CRYSTALS URIC ACID PRESENT
--- NOTE | 2016-12-16 07:29 | Diag Imaging Result Doc PS360 ---
EXAM: FLAT/UPRIGHT ABD/1 VIEW CHEST HISTORY: abd pain/vomiting TECHNIQUE: Flat and upright abdomen with AP chest COMMENT: There are surgical clips in the right upper quadrant and along the iliac vessels. There is a fairly large amount of stool present in the colon. The stomach and small bowel are not distended. There is no evidence of organomegaly or mass. Compared to 06/16/2016 there is less gas in the colon than previously otherwise there is been very little change. The appearance of the chest has not changed appreciably since 05/05/2016. IMPRESSION: Constipation. Electronically signed by Eddi Jacob 12/16/2016 7:26 AM
--- NOTE | 2016-12-16 07:35 | Diag Imaging Result Doc PS360 ---
EXAM: CT ABDOMEN/PELVIS W/O CONTRAST INDICATION: lower abd pain/? SBO TECHNIQUE: Dose reduction protocol was used. COMPARISON: 06/17/2016 FINDINGS: There is mild subsegmental atelectasis at the lung bases. There are calcified granulomata in the spleen. There has been a previous cholecystectomy. The liver, pancreas, and adrenal glands are unremarkable. There are several small nonobstructing intrarenal stones on the left. There are no ureteral stones identified and there is no hydronephrosis. The urinary bladder is unremarkable. There has been a previous hysterectomy. There is a surgical staple line associated with the colon in the right lower quadrant. There are several moderately distended loops of small bowel, mainly in the right lower quadrant. Although nonspecific, it is suspicious for partial small bowel obstruction. A clear transition point is not identified. There is stable rectus abdominous diastases. There is diffuse mild mesenteric fat stranding suggesting edema. The stomach is grossly unremarkable. IMPRESSION: 1.Several moderately distended loops of small bowel as described that are more prominent in the right lower quadrant. This is suspicious for partial small bowel obstruction. 2.Other incidental/nonacute findings detailed above. Electronically signed by Manfred Hutton 12/16/2016 7:32 AM
[2016-12-16] MEDS ORDERED: DILAUDID IV PRN (07:51)
[2016-12-16] MEDS ORDERED: POTASSIUM CHLORIDE 60 MEQ in NS 500 ML IV ONE (07:59)
[2016-12-16] MEDS ORDERED: DILAUDID ONE (08:06)
[2016-12-16] MEDS: SODIUM CHLORIDE 0.9% INJ SCH (08:07)
[2016-12-16] MEDS: PROTONIX IV SCH ×2 (08:07→20:35)
[2016-12-16] MEDS: ATIVAN IV PRN ×2 (08:09→11:14)
[2016-12-16] MEDS: NS 1,000 ML IV SCH (08:09)
[2016-12-16 10:44] LABS: IRON SATURATION 57 %; TIBC 119 ug/dL; TOTAL IRON 68 ug/dL (49-151); UNBOUND IRON 51 ug/dL (112-346)
[2016-12-16] MEDS: SUBOXONE 8 MG/2 MG SL SCH ×2 (11:13→20:35)
[2016-12-16] MEDS: PHENERGAN IV PRN ×3 (11:13→22:37)
[2016-12-16] MEDS ORDERED: MAGNESIUM SULFATE 2 GM/S.W.I. 2 GM/50 ML IVPB IV ONE (15:00)
[2016-12-16] MEDS: DILAUDID IV PRN ×2 (16:05→22:36)
[2016-12-16] MEDS ORDERED: NICODERM PATCH TD ONE (16:26)
[2016-12-16 17:02] LABS: MAGNESIUM 1.4 mg/dL (1.5-2.7); POTASSIUM 4.4 mmol/L (3.5-5.1)
[2016-12-16] MEDS: FOLIC ACID 1 MG in NS 50 ML IV SCH (20:34)
[2016-12-17] MEDS: ATIVAN IV PRN ×4 (00:03→19:42)
[2016-12-17] MEDS: NS 1,000 ML IV SCH (04:33)
[2016-12-17] MEDS: PHENERGAN IV PRN ×3 (04:34→22:58)
[2016-12-17] MEDS: SODIUM CHLORIDE 0.9% INJ PRN (04:34)
[2016-12-17 05:49] LABS: MANUAL DIFF NEEDED? NO
[2016-12-17 05:54] LABS: BASO% 0.3 % (0.0-0.8); EOS% 1.1 % (0.0-10.0); HEMATOCRIT 28.6 % (37.0-47.0); HEMOGLOBIN 9.1 g/dL (12.0-16.0); LYMPH# 2.05 X1000 (1.2-3.4); LYMPH% 22.7 % (20.5-51.1); MCH 28.3 PG (27-31); MCHC 31.8 g/dL (33-37); MCV 89.1 FL (81-99); MONO# 1.35 X1000 (0.11-0.59); MPV 11.5 FL (7.4-10.4); NEUT% 60.9 % (42.2-75.2); PLT 190 X1000 (130-400); RBC 3.21 XMIL (4.2-5.4)
[2016-12-17 06:09] LABS: INR 1.39; PROTIME 14.9 Seconds (9.2-11.7); PTT 36.6 Seconds (22.0-36.0)
[2016-12-17 06:19] LABS: AGAP 10; ALBUMIN 1.9 g/dL (3.5-5.0); ALKALINE PHOSPHATASE 236 U/L (32-104); BUN 8 mg/dL (8-22); CALCIUM 7.5 mg/dL (8.8-10.2); CHLORIDE 113 mmol/L (98-107); COSMO 284; GOT 28 U/L (10-30); GPT 19 U/L (10-36); POTASSIUM 4.4 mmol/L (3.5-5.1); SODIUM 144 mmol/L (136-145); TCO2 21 mmol/L (25-35); TOTAL BILIRUBIN 0.62 mg/dL (0.20-1.00); TOTAL PROTEIN 5.1 g/dL (6.3-8.3)
--- NOTE | 2016-12-17 08:11 | Diag Imaging Result Doc PS360 ---
EXAM: ABDOMEN FLAT/UPRIGHT HISTORY: partial small bowel obstruction TECHNIQUE: Flat and upright abdomen, two views COMMENT: There is slightly less stool present in the ascending and transverse colon than on the previous study of 12/16/2016. There is slightly more stool present in the rectosigmoid. There are air-fluid levels in the colon which is nonspecific. Otherwise, there has been no significant change since the previous study. IMPRESSION: Slightly improved constipation. Electronically signed by Eddi Jacob 12/17/2016 8:08 AM
[2016-12-17] MEDS: SUBOXONE 8 MG/2 MG SL SCH ×3 (08:21→20:09)
[2016-12-17] MEDS: PROTONIX IV SCH ×2 (08:23→19:43)
[2016-12-17] MEDS: NICODERM PATCH TD SCH (08:23)
[2016-12-17] MEDS: ZOFRAN IV PRN ×2 (08:23→21:03)
[2016-12-17] MEDS: SODIUM CHLORIDE 0.9% INJ SCH (08:23)
[2016-12-17] MEDS: MIRALAX PO SCH ×3 (10:19→20:09)
[2016-12-17] MEDS: COLACE PO SCH ×3 (10:20→20:09)
[2016-12-17] MEDS ORDERED: LACTULOSE PO SCH (11:45)
--- NOTE | 2016-12-17 12:34 | Diag Imaging Result Doc PS360 ---
CT HEAD W/O CONTRAST - 12/17/2016 INDICATION: encephalopathy TECHNIQUE: A CT dose reduction protocol was used. COMPARISON: 05/05/2016 FINDINGS: The ventricles and sulci are normal in size and contour. No intracranial mass or hemorrhage. The skull is intact. The sinuses mastoids and middle ears are clear. IMPRESSION: Negative exam. Electronically signed by Dawson Echeverria 12/17/2016 12:32 PM
[2016-12-17 13:54] LABS: ALLEN TEST YES; BE -3.4 mmoll (-3.0-3.0); BLOOD TYPE ARTERIAL; DRAW SITE R RADIAL; METHB 0.1 % (0.0-1.5); O2(CT) 13.5 mL/dL (15.0-23.0); PCO2(98.6) 36 mmHg (35-45); PO2(98.6) 82 mmHg (60-100); SAMPLE BLOOD; SAO2 95.6 % (95.0-100.0); pH(98.6) 7.38 (7.35-7.45)
[2016-12-17 13:56] LABS: MODALITY ROOM AIR
[2016-12-17] MEDS: LACTULOSE PO SCH ×2 (19:43→22:11)
[2016-12-17] MEDS: FOLIC ACID 1 MG in NS 50 ML IV SCH (20:17)
[2016-12-18] MEDS: ATIVAN IV PRN ×3 (01:55→23:22)
[2016-12-18] MEDS ORDERED: ATIVAN IV ONE (03:40)
[2016-12-18] MEDS: NS 1,000 ML IV SCH ×2 (05:12→20:57)
[2016-12-18 06:10] LABS: HEMATOCRIT 28.7 % (37.0-47.0); HEMOGLOBIN 9.3 g/dL (12.0-16.0); MCH 28.7 PG (27-31); MCHC 32.4 g/dL (33-37); MCV 88.6 FL (81-99); MPV 11.5 FL (7.4-10.4); RBC 3.24 XMIL (4.2-5.4)
[2016-12-18] MEDS: LACTULOSE PO SCH ×2 (06:13→18:07)
[2016-12-18] MEDS: PHENERGAN IV PRN ×3 (06:14→23:23)
[2016-12-18 06:18] LABS: AGAP 12; BUN 7 mg/dL (8-22); CALCIUM 7.4 mg/dL (8.8-10.2); CHLORIDE 110 mmol/L (98-107); COSMO 278; POTASSIUM 3.9 mmol/L (3.5-5.1); SODIUM 141 mmol/L (136-145); TCO2 19 mmol/L (25-35)
[2016-12-18] MEDS ORDERED: VITAMIN D PO SCH (09:00)
[2016-12-18] MEDS: MIRALAX PO SCH ×2 (10:21→23:23)
[2016-12-18] MEDS: NICODERM PATCH TD SCH (10:21)
[2016-12-18] MEDS: SUBOXONE 8 MG/2 MG SL SCH ×2 (10:22→23:22)
[2016-12-18] MEDS: COLACE PO SCH ×2 (10:22→23:23)
--- NOTE | 2016-12-18 11:39 | Diag Imaging Result Doc PS360 ---
EXAM: ABDOMEN FLAT/UPRIGHT INDICATION: constipation/ileus TECHNIQUE: 2 views COMPARISON: 01/26/2017 FINDINGS: Constipation continues to improve. There are persistent air-fluid levels in the colon but this has improved. There is no evidence of large volume free abdominal gas. The abdomen is stable otherwise. IMPRESSION: Interval improvement of constipation and air-fluid levels in the colon. Electronically signed by Manfred Hutton 12/18/2016 11:37 AM
[2016-12-18] MEDS: SODIUM CHLORIDE 0.9% INJ PRN (13:15)
[2016-12-18] MEDS: MERREM 500 MG in NS 50 ML IV SCH (13:16)
[2016-12-18] MEDS: SODIUM CHLORIDE 0.9% INJ SCH (13:16)
[2016-12-18] MEDS: PROTONIX IV SCH ×2 (13:16→23:22)
[2016-12-18] MEDS ORDERED: MAGNESIUM SULFATE 2 GM/S.W.I. 2 GM/50 ML IVPB IV ONE (15:08)
--- NOTE | 2016-12-18 15:46 | Diag Imaging Result Doc PS360 ---
EXAM: CHEST-PORTABLE INDICATION: dyspnea TECHNIQUE: One view COMPARISON: 12/16/2016 FINDINGS: There has been development of infiltrates at the lung bases and perihilar regions indicating pulmonary venous congestion and interstitial edema. There is no discrete pleural fluid collection or pneumothorax. Cardiac silhouette is stable. IMPRESSION: Development of pulmonary venous congestion and interstitial edema. Electronically signed by Manfred Hutton 12/18/2016 3:43 PM
[2016-12-18] MEDS ORDERED: LASIX IV ONE (21:11)
[2016-12-19] MEDS: LACTULOSE PO SCH ×3 (01:02→17:09)
[2016-12-19] MEDS: MERREM 500 MG in NS 50 ML IV SCH ×3 (01:38→17:10)
[2016-12-19] MEDS: FOLIC ACID 1 MG in NS 50 ML IV SCH ×2 (01:38→23:34)
[2016-12-19 07:03] LABS: HEMATOCRIT 29.3 % (37.0-47.0); HEMOGLOBIN 9.4 g/dL (12.0-16.0); MCH 29.1 PG (27-31); MCHC 32.1 g/dL (33-37); MCV 90.7 FL (81-99); MPV 11.1 FL (7.4-10.4); RBC 3.23 XMIL (4.2-5.4)
[2016-12-19 07:30] LABS: AGAP 12; BUN 9 mg/dL (8-22); CALCIUM 7.6 mg/dL (8.8-10.2); CHLORIDE 106 mmol/L (98-107); COSMO 275; POTASSIUM 3.6 mmol/L (3.5-5.1); SODIUM 139 mmol/L (136-145); TCO2 21 mmol/L (25-35)
[2016-12-19] MEDS: PROTONIX IV SCH ×2 (09:00→23:35)
[2016-12-19] MEDS: SUBOXONE 8 MG/2 MG SL SCH ×2 (09:01→23:34)
[2016-12-19] MEDS: NICODERM PATCH TD SCH (09:01)
[2016-12-19] MEDS: MIRALAX PO SCH ×2 (09:01→23:35)
[2016-12-19] MEDS: COLACE PO SCH ×2 (09:01→23:35)
[2016-12-19] MEDS: ZOFRAN IV PRN (09:07)
[2016-12-19] MEDS: ATIVAN IV PRN (09:07)
[2016-12-19] MEDS: XANAX PO SCH ×3 (10:13→17:08)
--- NOTE | 2016-12-19 11:05 | Diag Imaging Result Doc PS360 ---
EXAM: ABDOMEN FLAT/UPRIGHT HISTORY: constipation TECHNIQUE: Flat and upright abdomen COMMENT: The large amount of stool which was present in the rectum at the time the previous study of 12/18/2016 has largely been evacuated. There are still air-fluid levels throughout the colon and a fair amount of gas in the area of the splenic flexure. The stomach is not distended. There is no evidence of small bowel dilatation. IMPRESSION: Improved constipation. Electronically signed by Eddi Jacob 12/19/2016 11:03 AM
[2016-12-19] MEDS ORDERED: XANAX PO SCH (13:00)
[2016-12-19] MEDS: SODIUM CHLORIDE 0.9% INJ SCH (23:35)
[2016-12-20] MEDS: XANAX PO SCH ×2 (00:43→08:57)
[2016-12-20] MEDS: PHENERGAN IV PRN ×3 (00:43→13:49)
[2016-12-20] MEDS: SODIUM CHLORIDE 0.9% INJ PRN ×2 (00:43→05:41)
[2016-12-20] MEDS: MERREM 500 MG in NS 50 ML IV SCH ×2 (00:44→08:56)
[2016-12-20] MEDS: LACTULOSE PO SCH ×3 (00:59→13:49)
[2016-12-20 06:33] LABS: HEMATOCRIT 31.9 % (37.0-47.0); HEMOGLOBIN 10.1 g/dL (12.0-16.0); MCHC 31.7 g/dL (33-37); MCV 91.7 FL (81-99); MPV 10.9 FL (7.4-10.4); RBC 3.48 XMIL (4.2-5.4)
[2016-12-20 06:51] LABS: MAGNESIUM 1.9 mg/dL (1.5-2.7)
[2016-12-20 06:58] LABS: AGAP 13; BUN 8 mg/dL (8-22); CALCIUM 7.6 mg/dL (8.8-10.2); CHLORIDE 112 mmol/L (98-107); COSMO 283; POTASSIUM 4.2 mmol/L (3.5-5.1); SODIUM 143 mmol/L (136-145); TCO2 18 mmol/L (25-35)
[2016-12-20] MEDS: SUBOXONE 8 MG/2 MG SL SCH (08:56)
[2016-12-20] MEDS: NICODERM PATCH TD SCH (08:57)
[2016-12-20] MEDS: PROTONIX IV SCH (08:57)
[2016-12-20] MEDS: COLACE PO SCH (08:57)
[2016-12-20] MEDS: MIRALAX PO SCH (08:57)
[2016-12-20] MEDS ORDERED: XANAX PO PRN (11:17)
[2016-12-20] MEDS ORDERED: 1/2 NS 1,000 ML IV SCH (11:19)
[2016-12-20 17:09] VITALS: BP 101/62
== END 2016-12-20 17:50 | disposition left against medical advice (07) ==
LOC: ED 03:33 → 4N 08:20 → 3N 12-18 20:21
PROVIDERS: ATTEND Internal Medicine